=== PATIENT | female | born 1960 | race Caucasian/White ===

== ENCOUNTER 2016-10-17 03:35 | Emergency (ER) | payer MEDICAID, OTHER ==
[~2016-10-17] VITALS: Ht 162.6 cm; Wt 100.0 kg
[2016-10-17] MEDS ORDERED: ACETAMINOPHEN WITH CODEINE 300/30MG TABLET PO ONE (06:30)
[2016-10-17] MEDS ORDERED: TETANUS, DIPHTHERIA, PERTUSSIS VAC/PF 0.5ML (>7YR OLD) IM ONE (06:30)
[2016-10-17 07:34] VITALS: BP 168/102
== END 2016-10-17 07:38 | disposition home or self-care (01) ==
LOC: ER 03:35
DX: S91.135A Puncture wound without foreign body of left lesser toe(s) without damage to nail, initial encounter (principal); I10 Essential (primary) hypertension; F17.200 Nicotine dependence, unspecified, uncomplicated; W53.11XA Bitten by rat, initial encounter; Y93.89 Activity, other specified; Y92.89 Other specified places as the place of occurrence of the external cause; Y99.8 Other external cause status
CPT/HCPCS: 73630; 90471; 90715; 99284; Z7610

== ENCOUNTER 2018-10-27 18:32 | Emergency (ER) | payer MEDICAID ==
[~2018-10-27] VITALS: Ht 167.6 cm; Wt 91.0 kg
[2018-10-27] MEDS ORDERED: HYDROCODONE/ACETAMINOPHEN 5/325MG TABLET PO ONE (23:45)
[2018-10-28] MEDS ORDERED: CLONIDINE 0.2MG TABLET PO ONE (01:45)
[2018-10-28 01:51] VITALS: BP 196/106
== END 2018-10-28 02:10 | disposition home or self-care (01) ==
LOC: ER 18:32
DX: L03.311 Cellulitis of abdominal wall (principal); I10 Essential (primary) hypertension
CPT/HCPCS: 99283

== ENCOUNTER 2020-08-16 17:41 | Emergency (ER) | payer MEDICAID ==
[~2020-08-16] VITALS: Ht 162.6 cm; Wt 121.0 kg
[2020-08-17 00:49] LABS: BASOPHILS % 0.7 % (0.0-2.0); HEMATOCRIT. 40.7 % (36.0-48.0); HEMOGLOBIN. 13.5 g/dL (12.0-16.0); LYMPHOCYTES % 38.1 % (20.0-50.0); MEAN CORPUSCULAR HEMOGLOBIN 31.9 pg (28.0-32.0); MEAN CORPUSCULAR VOLUME 96.2 fL (81.0-99.0); MEAN PLATELET VOLUME 8.7 fl (7.4-10.4); MONOCYTES % 6.2 % (2.0-8.0); PLATELET 216 x1000/uL (130-400); RED BLOOD CELL COUNT 4.24 mill/uL (4.2-5.4); RED CELL DISTRIBUTION WIDTH 14.7 % (11.6-14.6)
[2020-08-17 02:00] VITALS: BP 157/89
== END 2020-08-17 02:30 | disposition home or self-care (01) ==
LOC: ER 17:41
DX: M25.572 Pain in left ankle and joints of left foot (principal); I10 Essential (primary) hypertension
CPT/HCPCS: 36415; 73610; 80048; 85025; 93922; 93971; 99285

== ENCOUNTER 2022-02-20 13:49 | Emergency (ER) | payer MEDICAID, OTHER ==
[~2022-02-20] VITALS: Ht 167.6 cm; Wt 90.0 kg
[2022-02-20 14:18] VITALS: BP 156/89
[2022-02-20] MEDS ORDERED: AMOX-494 MT (17:55)
[2022-02-20] MEDS ORDERED: AMLO5TAB4 MT (17:55)
[2022-02-20] MEDS ORDERED: CARB-274 EACH EAR (17:55)
== END 2022-02-20 18:29 | disposition home or self-care (01) ==
LOC: ER 13:49
DX: H66.93 Otitis media, unspecified, bilateral (principal); I16.0 Hypertensive urgency; I10 Essential (primary) hypertension; Z79.899 Other long term (current) drug therapy
CPT/HCPCS: 99283

== ENCOUNTER 2022-05-13 13:10 | Emergency (ER) | payer MEDICAID, OTHER ==
[~2022-05-13] VITALS: Ht 162.6 cm; Wt 84.0 kg
[~2022-05-13 13:10] MED LIST: AMLO5TAB4 MT; AMOX-494 MT; CARB-274 EACH EAR
[2022-05-13] MEDS ORDERED: IPRATROPIUM BROMIDE (0.02%) 0.5MG/2.5ML NEB HHN STA (13:47)
[2022-05-13] MEDS ORDERED: ALBUTEROL (0.083%) 2.5MG/3ML NEB HHN STA (13:47)
[2022-05-13] MEDS ORDERED: NITROGLYCERIN 0.4MG TABLET SL SL PRN (14:00)
[2022-05-13] MEDS ORDERED: ASPIRIN 81MG TABLET PO ONE (14:00)
[2022-05-13 14:58] VITALS: BP 195/132
== END 2022-05-13 15:06 | disposition left against medical advice (07) ==
LOC: ER 13:10 → ENRESERV 20:46 → CANBEDREQ 05-15 11:05
DX: R06.02 Shortness of breath (principal); I10 Essential (primary) hypertension; J40 Bronchitis, not specified as acute or chronic; M19.90 Unspecified osteoarthritis, unspecified site; Z98.890 Other specified postprocedural states
CPT/HCPCS: 71045; 93005; 94640; 99285; Z7610

== ENCOUNTER 2022-05-13 15:39 | Inpatient (IN) | payer MEDICAID ==
[~2022-05-13] VITALS: Ht 162.6 cm; Wt 108.4 kg
[2022-05-13 18:37] LABS: BASOPHILS % 0.6 % (0.0-2.0); EOSINOPHILS % 0.5 % (0.0-5.0); HEMATOCRIT. 38.1 % (36.0-48.0); HEMOGLOBIN. 12.4 g/dL (12.0-16.0); LYMPHOCYTES % 38.4 % (20.0-50.0); MEAN CORPUSCULAR HEMOGLOBIN 31.3 pg (28.0-32.0); MEAN CORPUSCULAR VOLUME 96.1 fL (81.0-99.0); MEAN PLATELET VOLUME 8.6 fl (7.4-10.4); MONOCYTES % 7.7 % (2.0-8.0); NEUTROPHILS % 52.8 % (40.0-76.0); PLATELET 217 x1000/uL (130-400); RED BLOOD CELL COUNT 3.96 mill/uL (4.2-5.4); RED CELL DISTRIBUTION WIDTH 15.9 % (11.6-14.6)
[2022-05-13 18:53] LABS: CHLORIDE 112 mEq/L (98-107)
[2022-05-13] MEDS ORDERED: IPRATROPIUM BROMIDE (0.02%) 0.5MG/2.5ML NEB HHN NR (18:55)
[2022-05-13] MEDS ORDERED: METHYLPREDNISOLONE SOD SUCC 125 MG/2 ML VIAL IV STA (19:00)
[2022-05-13] MEDS: ALBUTEROL (0.083%) 2.5MG/3ML NEB HHN SCH ×3 (19:40→20:30)
[2022-05-13] MEDS ORDERED: ASPIRIN 81MG TABLET PO SCH (20:00)
[2022-05-13] MEDS ORDERED: ENOXAPARIN 100MG/ML SYR SUBCUT NR (20:15)
[2022-05-13] MEDS ORDERED: LORAZEPAM 2MG/ML CPJ IV SCH (20:15)
[2022-05-13] MEDS ORDERED: IOHEXOL-350 100 ML BOTTLE ONE (20:28)
[2022-05-13 23:24] VITALS: BP 162/88
[2022-05-14] VITALS: BP 156/84
[2022-05-14] MEDS ORDERED: ACETAMINOPHEN 325MG TABLET PO PRN (01:00)
[2022-05-14] MEDS ORDERED: NITROGLYCERIN 0.4MG TABLET SL SL PRN (01:00)
[2022-05-14] MEDS ORDERED: ONDANSETRON HCL 4MG/2ML INJ IV PRN (01:00)
[2022-05-14] MEDS: FUROSEMIDE 40MG/4ML VIAL IVP SCH ×2 (02:18→09:02)
[2022-05-14 04:00] VITALS: BP 153/98
[2022-05-14 06:48] LABS: BASOPHILS % 0.1 % (0.0-2.0); HEMATOCRIT. 40.2 % (36.0-48.0); HEMOGLOBIN. 13.2 g/dL (12.0-16.0); LYMPHOCYTES % 8.9 % (20.0-50.0); MEAN CORPUSCULAR HEMOGLOBIN 31.9 pg (28.0-32.0); MEAN PLATELET VOLUME 8.5 fl (7.4-10.4); PLATELET 226 x1000/uL (130-400); RED BLOOD CELL COUNT 4.14 mill/uL (4.2-5.4); RED CELL DISTRIBUTION WIDTH 15.7 % (11.6-14.6)
[2022-05-14] MEDS: PANTOPRAZOLE 40MG DR TABLET PO SCH (06:51)
[2022-05-14 07:08] LABS: CHLORIDE 107 mEq/L (98-107)
[2022-05-14 07:26] LABS: HDL CHOLESTEROL 39 mg/dL (40-59); LDL CHOLESTEROL 119 mg/dL (5-100); T4 FREE 0.97 ng/dL (0.76-1.46)
[2022-05-14 08:00] VITALS: BP 170/96
[2022-05-14] MEDS ORDERED: LOSARTAN POTASSIUM 25 MG TABLET PO SCH ×2 (09:00→11:00)
[2022-05-14] MEDS ORDERED: ENOXAPARIN 40MG/0.4ML SYR SUBCUT SCH (09:00)
[2022-05-14] MEDS: POTASSIUM CHLORIDE 20MEQ TABLET SR PO SCH (09:03)
[2022-05-14] MEDS: ASPIRIN 81MG TABLET PO SCH (09:03)
[2022-05-14] MEDS: CARVEDILOL 6.25 MG TABLET PO SCH ×2 (09:03→21:29)
[2022-05-14] MEDS: ENOXAPARIN 30MG/0.3ML SYR SUBCUT SCH ×2 (09:04→21:29)
[2022-05-14] MEDS: METHYLPREDNISOLONE SOD SUCC 40 MG/ML VIAL IV SCH ×2 (10:25→21:29)
[2022-05-14 10:31] LABS: CLARITY URINE CLEAR (CLEAR); COLOR URINE YELLOW (YELLOW); KETONES URINE NEGATIVE (NEGATIVE); LEUKOCYTE ESTERASE URINE NEGATIVE (NEGATIVE); NITRITE URINE NEGATIVE (NEGATIVE); OCCULT BLOOD URINE NEGATIVE (NEGATIVE); PH URINE 5.5 (4.5-8.0); PROTEIN URINE NEGATIVE (NEGATIVE); SPECIFIC GRAVITY URINE 1.027 (1.005-1.030)
[2022-05-14 10:49] LABS: *AMPHETAMINES SCREEN URINE NEGATIVE (NEGATIVE); *BARBITURATES SCREEN URINE NEGATIVE (NEGATIVE); *BENZODIAZEPINES SCREEN URINE NEGATIVE (NEGATIVE); *COCAINE SCREEN URINE PRESUMTIVE POSITIVE (NEGATIVE); CANNABINOID URINE SCREEN NEGATIVE (NEGATIVE); METHADONE URINE SCREEN NEGATIVE (NEGATIVE); OPIATES URINE SCREEN NEGATIVE (NEGATIVE); PHENCYCLIDINE URINE SCREEN PRESUMTIVE POSITIVE (NEGATIVE)
[2022-05-14] MEDS ORDERED: HYDRALAZINE HCL 25MG TABLET PO PRN (11:00)
[2022-05-14 12:00] VITALS: BP 149/105
[2022-05-14 16:00] VITALS: BP 151/102
[2022-05-14] MEDS: LOSARTAN POTASSIUM 25 MG TABLET PO SCH (17:06)
[2022-05-14 20:00] VITALS: BP 157/94
[2022-05-15] VITALS: BP 145/97
[2022-05-15 04:00] VITALS: BP 125/83
[2022-05-15] MEDS: PANTOPRAZOLE 40MG DR TABLET PO SCH (07:17)
[2022-05-15 08:00] VITALS: BP 135/91
[2022-05-15] MEDS ORDERED: ALBU18HF2 IH (08:58)
[2022-05-15] MEDS ORDERED: LOSA25TA3 PO (08:58)
[2022-05-15] MEDS ORDERED: FURO-151 MT (08:58)
[2022-05-15] MEDS ORDERED: AMLO10TA80 MT (08:58)
[2022-05-15] MEDS ORDERED: FLUT1DIS3 INH (09:03)
[2022-05-15] MEDS ORDERED: FLUT9.9S16 BOTHNSTRLS (09:03)
[2022-05-15] MEDS ORDERED: LACTULOSE 20G/30ML UDC PO NR (09:15)
[2022-05-15] MEDS: ASPIRIN 81MG TABLET PO SCH (09:34)
[2022-05-15] MEDS: LOSARTAN POTASSIUM 25 MG TABLET PO SCH ×2 (09:34→18:10)
[2022-05-15] MEDS: POTASSIUM CHLORIDE 20MEQ TABLET SR PO SCH (09:34)
[2022-05-15] MEDS: METHYLPREDNISOLONE SOD SUCC 40 MG/ML VIAL IV SCH ×2 (09:35→21:57)
[2022-05-15] MEDS: FUROSEMIDE 40MG/4ML VIAL IVP SCH (09:35)
[2022-05-15] MEDS: ENOXAPARIN 30MG/0.3ML SYR SUBCUT SCH ×3 (09:36→21:59)
[2022-05-15] MEDS: CARVEDILOL 6.25 MG TABLET PO SCH ×2 (09:37→21:59)
[2022-05-15] MEDS: FLUTICASONE PROPIONATE 50MCG/SPRAY BOTTLE BOTHNSTRLS SCH ×2 (11:00→22:00)
[2022-05-15 12:00] VITALS: BP 126/81
[2022-05-15 16:00] VITALS: BP 146/76
[2022-05-15 20:00] VITALS: BP 132/70
[2022-05-16] VITALS: BP 137/86
[2022-05-16 04:00] VITALS: BP 131/85
[2022-05-16 08:00] VITALS: BP 132/82
[2022-05-16] MEDS: ENOXAPARIN 30MG/0.3ML SYR SUBCUT SCH ×2 (08:13→21:47)
[2022-05-16] MEDS: FAMOTIDINE 20MG TABLET PO SCH ×2 (08:13→21:45)
[2022-05-16] MEDS: LOSARTAN POTASSIUM 25 MG TABLET PO SCH ×2 (08:13→17:44)
[2022-05-16] MEDS: POTASSIUM CHLORIDE 20MEQ TABLET SR PO SCH (08:13)
[2022-05-16] MEDS: METHYLPREDNISOLONE SOD SUCC 40 MG/ML VIAL IV SCH ×2 (08:14→21:45)
[2022-05-16] MEDS: ASPIRIN 81MG TABLET PO SCH (08:14)
[2022-05-16] MEDS: FUROSEMIDE 40MG/4ML VIAL IVP SCH (08:14)
[2022-05-16] MEDS: CARVEDILOL 6.25 MG TABLET PO SCH ×2 (08:14→21:49)
[2022-05-16] MEDS: FLUTICASONE PROPIONATE 50MCG/SPRAY BOTTLE BOTHNSTRLS SCH ×2 (09:44→21:51)
[2022-05-16 12:00] VITALS: BP 130/87
[2022-05-16 16:00] VITALS: BP 127/56
[2022-05-16 20:00] VITALS: BP 138/100
[2022-05-17] VITALS (7 sets, daily range): BP systolic 119–140; BP diastolic 73–102
[2022-05-17] MEDS: FUROSEMIDE 40MG/4ML VIAL IVP SCH (09:00)
[2022-05-17] MEDS: CARVEDILOL 6.25 MG TABLET PO SCH ×2 (09:00→20:56)
[2022-05-17] MEDS: LOSARTAN POTASSIUM 25 MG TABLET PO SCH ×2 (09:00→17:15)
[2022-05-17] MEDS: METHYLPREDNISOLONE SOD SUCC 40 MG/ML VIAL IV SCH (09:00)
[2022-05-17] MEDS: ENOXAPARIN 30MG/0.3ML SYR SUBCUT SCH ×2 (09:00→21:50)
[2022-05-17] MEDS: FAMOTIDINE 20MG TABLET PO SCH ×2 (09:00→20:56)
[2022-05-17] MEDS: FLUTICASONE PROPIONATE 50MCG/SPRAY BOTTLE BOTHNSTRLS SCH ×2 (09:57→20:56)
[2022-05-17] MEDS: POTASSIUM CHLORIDE 20MEQ TABLET SR PO SCH (09:58)
[2022-05-17] MEDS: ASPIRIN 81MG TABLET PO SCH (09:59)
[2022-05-18 08:00] VITALS: BP 133/82
[2022-05-18] MEDS: FAMOTIDINE 20MG TABLET PO SCH ×2 (08:48→21:00)
[2022-05-18] MEDS: CARVEDILOL 6.25 MG TABLET PO SCH ×2 (08:48→21:53)
[2022-05-18] MEDS: POTASSIUM CHLORIDE 20MEQ TABLET SR PO SCH (08:49)
[2022-05-18] MEDS: LOSARTAN POTASSIUM 25 MG TABLET PO SCH ×2 (08:49→17:37)
[2022-05-18] MEDS: PREDNISONE 10MG TABLET PO SCH (08:49)
[2022-05-18] MEDS: FLUTICASONE PROPIONATE 50MCG/SPRAY BOTTLE BOTHNSTRLS SCH (08:49)
[2022-05-18] MEDS: ASPIRIN 81MG TABLET PO SCH (08:49)
[2022-05-18] MEDS: ENOXAPARIN 30MG/0.3ML SYR SUBCUT SCH ×2 (08:54→21:00)
[2022-05-18 12:00] VITALS: BP 121/82
[2022-05-18 12:46] LABS: BG BASE EXCESS 6.9 mmol/L (-2.0-2.0); BG CARBOXYHEMOGLOBIN 0.8 % (0.5-1.5); BG DEOXYHEMOGLOBIN 2.3 % (0.0-5.0); BG FRACTION INSPIRED OXYGEN 21; BG HCO3 ACT 31.6 mmol/L (22.0-26.0); BG METHEMOGLOBIN 0.1 % (0.0-1.5); BG OXYGEN SATURATION 97.7 % (92.0-98.5); BG OXYHEMOGLOBIN 96.8 % (94.0-97.0); BG PCO2 45.1 mmHg (35.0-45.0); BG PH 7.464 (7.350-7.450); BG PO2 108.1 mmHg (75.0-100.0); BG SAMPLE SITE RIGHT RADIAL; BG TOTAL HEMOGLOBIN 14.3 g/dL (12.0-18.0); BG VENT MODE ROOM AIR
[2022-05-18 16:00] VITALS: BP 139/88
[2022-05-18 20:00] VITALS: BP 148/98
[2022-05-19] VITALS: BP 135/92
[2022-05-19] MEDS: POTASSIUM CHLORIDE 20MEQ TABLET SR PO SCH (09:00)
[2022-05-19] MEDS: FAMOTIDINE 20MG TABLET PO SCH (09:00)
[2022-05-19] MEDS: LOSARTAN POTASSIUM 25 MG TABLET PO SCH (09:00)
[2022-05-19] MEDS: ENOXAPARIN 30MG/0.3ML SYR SUBCUT SCH (09:00)
[2022-05-19] MEDS: PREDNISONE 10MG TABLET PO SCH (11:10)
[2022-05-19] MEDS: ASPIRIN 81MG TABLET PO SCH (11:11)
[2022-05-19] MEDS: CARVEDILOL 6.25 MG TABLET PO SCH (11:12)
[2022-05-19 11:55] VITALS: BP 130/83
[2022-05-19] MEDS: BUDESONIDE 0.5MG/2ML NEB HHN SCH ×2 (12:39→20:00)
[2022-05-19 16:02] VITALS: BP 134/91
[2022-05-19 16:25] VITALS: BP 134/91
[2022-05-19] MEDS ORDERED: ATORVASTATIN CALCIUM 20MG TABLET PO SCH (21:00)
== END 2022-05-19 19:10 | disposition home or self-care (01) | DRG 194 ==
LOC: ER 15:39 → CVICU 20:02 → EDBEDREQ 20:20 → EDBEDREQTM 20:20 → 3WST 23:16 → 6EST 05-18 00:58
PROVIDERS: ADMIT Internal Medicine; ATTEND Internal Medicine
DX: I11.0 Hypertensive heart disease with heart failure (principal); J96.01 Acute respiratory failure with hypoxia; E44.1 Mild protein-calorie malnutrition; J44.1 Chronic obstructive pulmonary disease with (acute) exacerbation; I50.33 Acute on chronic diastolic (congestive) heart failure; E66.9 Obesity, unspecified; Z20.822 Contact with and (suspected) exposure to COVID-19; M19.90 Unspecified osteoarthritis, unspecified site; F17.210 Nicotine dependence, cigarettes, uncomplicated; F14.10 Cocaine abuse, uncomplicated; R74.01 Elevation of levels of liver transaminase levels; Z79.899 Other long term (current) drug therapy; Z59.00 Homelessness unspecified; Z79.51 Long term (current) use of inhaled steroids; Z68.41 Body mass index [BMI] 40.0-44.9, adult; Z71.6 Tobacco abuse counseling
CPT/HCPCS: 36415; 36600; 71275; 80048; 80053; 80061; 80305; 81003; 82375; 82805; 83735; 83880; 84145; 84439; 84443; 84484; 85025; 85379; 87426; 93306; 93971; 94644; 97162; 99285; J1650; J1940; J2920; J2930; J7512; J7626; Q9967

== ENCOUNTER 2022-08-28 17:48 | Emergency (ER) | payer MEDICAID, OTHER ==
[~2022-08-28] VITALS: Ht 162.6 cm; Wt 85.7 kg
[~2022-08-28 17:48] MED LIST changes: +ALBU18HF2 IH; +AMLO10TA80 MT; -AMOX-494 MT; +FLUT1DIS3 INH; +FLUT9.9S16 BOTHNSTRLS; +FURO-151 MT; +LOSA25TA3 PO
[2022-08-28 18:02] VITALS: O2SAT 91
[2022-08-28 18:35] LABS: BASOPHILS % 0.7 % (0.0-2.0); EOSINOPHILS % 1.2 % (0.0-5.0); HEMATOCRIT. 37.9 % (36.0-48.0); HEMOGLOBIN. 12.2 g/dL (12.0-16.0); LYMPHOCYTES % 25.3 % (20.0-50.0); MEAN CORPUSCULAR HEMOGLOBIN 31.7 pg (28.0-32.0); MEAN CORPUSCULAR VOLUME 98.3 fL (81.0-99.0); MONOCYTES % 6.7 % (2.0-8.0); NEUTROPHILS % 66.1 % (40.0-76.0); PLATELET 212 x1000/uL (130-400); RED BLOOD CELL COUNT 3.86 mill/uL (4.2-5.4); RED CELL DISTRIBUTION WIDTH 16.5 % (11.6-14.6)
[2022-08-28 18:41] LABS: CHLORIDE 112 mEq/L (98-107)
[2022-08-28 19:10] LABS: INR 1.1; PROTHROMBIN TIME 11.4 sec (9.6-11.0)
[2022-08-28] MEDS ORDERED: ONDANSETRON HCL 4MG/2ML INJ IV STA (22:19)
[2022-08-28] MEDS ORDERED: MORPHINE SULFATE 4 MG/ML CPJ (NOT FOR IM USE) IV STA (22:19)
[2022-08-28] MEDS ORDERED: VANCOMYCIN 1G PREMIX 200 ML IV ONE (22:30)
[2022-08-28] MEDS ORDERED: PIPERACILLIN/TAZ 3.375G PREMIX 50 ML IV ONE (22:30)
[2022-08-28] MEDS ORDERED: METOCLOPRAMIDE HCL 10MG/2ML VIAL IV ONE (23:30)
[2022-08-29 02:00] VITALS: TEMP 98.5
[2022-08-29 04:00] VITALS: BP 133/95; PULSE 79; RESP 17
== END 2022-08-29 04:12 | disposition left against medical advice (07) ==
LOC: ER 17:48
DX: L03.116 Cellulitis of left lower limb (principal); I11.0 Hypertensive heart disease with heart failure; I50.9 Heart failure, unspecified; Z79.899 Other long term (current) drug therapy
CPT/HCPCS: 80053; 83880; 83605; 85025; 85610; 87040; 84484; 36415; 71045; 73590; 93970; 93005; 96365; 96366; 96375; 99285; J2765; J2405; J2543; J3370; J2270; Z7610 ×3

== ENCOUNTER 2022-10-28 11:18 | Emergency (ER) | payer OTHER ==
[~2022-10-28] VITALS: Ht 165.1 cm; Wt 90.0 kg
[~2022-10-28 11:18] MED LIST changes: +ATOR20TA PO
[2022-10-28 12:04] VITALS: BP 177/103; PULSE 92; RESP 20; O2SAT 98
[2022-10-28 14:00] VITALS: TEMP 98.7
[2022-10-28] MEDS ORDERED: ACETAMINOPHEN 325MG TABLET PO ONE (14:00)
[2022-10-28] MEDS ORDERED: INHA1SPA3 INH (15:32)
[2022-10-28] MEDS ORDERED: ACET-2708 MT ×2 (16:29→16:30)
== END 2022-10-28 16:29 | disposition home or self-care (01) ==
LOC: ER 12:53
DX: M54.9 Dorsalgia, unspecified (principal); I10 Essential (primary) hypertension; Z79.899 Other long term (current) drug therapy
CPT/HCPCS: 99281; 99283

== ENCOUNTER 2023-02-25 08:32 | Emergency (ER) | payer MEDICAID, OTHER ==
[~2023-02-25] VITALS: Ht 162.6 cm; Wt 128.0 kg
[~2023-02-25 08:32] MED LIST changes: +ACET-2708 MT; +INHA1SPA3 INH; +LOSA-412 PO; -LOSA25TA3 PO
[2023-02-25 09:06] VITALS: BP 128/80; PULSE 94; RESP 16; TEMP 97.9; O2SAT 99
[2023-02-25] MEDS ORDERED: ACET-283 PO (10:01)
[2023-02-25] MEDS ORDERED: SULF1TAB47 MT (10:01)
[2023-02-25] MEDS ORDERED: CEPH500C2 MT (10:01)
[2023-02-25] MEDS ORDERED: HYDR-4001 MT (10:01)
== END 2023-02-25 10:46 | disposition home or self-care (01) ==
LOC: ER 08:32
DX: L03.115 Cellulitis of right lower limb (principal); R60.0 Localized edema; I11.0 Hypertensive heart disease with heart failure; I50.9 Heart failure, unspecified; Z79.899 Other long term (current) drug therapy
CPT/HCPCS: 99283

== ENCOUNTER 2023-09-02 15:01 | Emergency (ER) | payer OTHER, MEDICAID ==
[~2023-09-02] VITALS: Ht 167.6 cm; Wt 100.0 kg
[~2023-09-02 15:01] MED LIST changes: +ACET-283 PO; +CEPH500C2 MT; +HYDR-4001 MT; +SULF1TAB47 MT
[2023-09-02 15:06] VITALS: O2SAT 95
[2023-09-02 15:47] LABS: CHLORIDE 110 mEq/L (98-107); POTASSIUM 3.8 mEq/L (3.5-5.1); SODIUM 144 mEq/L (136-145)
[2023-09-02 15:48] LABS: CARBON DIOXIDE 27 mEq/L (21-32)
[2023-09-02 15:49] LABS: CALCIUM 8.7 mg/dL (8.7-10.4)
[2023-09-02 15:50] LABS: BASOPHILS % 0.4 % (0.0-2.0); DIFFERENTIAL COMMENT 0; EOSINOPHILS % 0.4 % (0.0-5.0); HEMATOCRIT. 36.8 % (36.0-48.0); HEMOGLOBIN. 11.8 g/dL (12.0-16.0); MEAN CORPUSCULAR HEMOGLOBIN 32.8 pg (28.0-32.0); MEAN CORPUSCULAR HGB CONC 32.2 g/dL (31.0-37.0); MEAN CORPUSCULAR VOLUME 101.9 fL (81.0-99.0); MEAN PLATELET VOLUME 8.2 fl (7.4-10.4); MONOCYTES % 8.1 % (2.0-8.0); NEUTROPHILS % 65.1 % (40.0-76.0); PLATELET 185 x1000/uL (130-400); RED BLOOD CELL COUNT 3.61 mill/uL (4.2-5.4); RED CELL DISTRIBUTION WIDTH 16.5 % (11.6-14.6); WHITE BLOOD COUNT 4.8 x1000/uL (4.5-11.0)
[2023-09-02 15:53] LABS: GLUCOSE 139 mg/dL (70-105); UREA NITROGEN BLOOD 15 mg/dL (9-23)
[2023-09-02 15:55] LABS: ALANINE AMINOTRANSFERASE 22 IU/L (10-49); ALBUMIN 3.5 g/dL (3.2-4.8); ASPARTATE AMINOTRANSFERASE 32 IU/L (<34)
[2023-09-02 15:56] LABS: BILIRUBIN DIRECT 0.4 mg/dL (<=3.0); BILIRUBIN TOTAL 0.8 mg/dL (0.1-1.0); PROTEIN TOTAL 6.1 g/dL (6.0-8.3)
[2023-09-02] MEDS ORDERED: IBUP-2029 MT (16:25)
[2023-09-02] MEDS ORDERED: FURO-151 MT (16:25)
[2023-09-02] MEDS: IBUPROFEN 600MG TABLET PO ONE (16:49)
[2023-09-02 17:08] VITALS: BP 147/89; PULSE 91; RESP 18; TEMP 97.7
== END 2023-09-02 17:18 | disposition home or self-care (01) ==
LOC: ER 15:01
DX: M79.89 Other specified soft tissue disorders (principal); I11.0 Hypertensive heart disease with heart failure; I50.9 Heart failure, unspecified; Z98.890 Other specified postprocedural states; Z79.899 Other long term (current) drug therapy
CPT/HCPCS: 36415; 71045; 80048; 80076; 83880; 85025; 93005; 99285

== ENCOUNTER 2024-01-01 20:12 | Inpatient (IN) | payer MEDICAID, OTHER ==
[~2024-01-01] VITALS: Ht 162.6 cm; Wt 115.2 kg
[~2024-01-01 20:12] MED LIST changes: -AMLO5TAB4 MT; +AMLO5TAB5 MT; +IBUP-2029 MT
[2024-01-01 21:26] LABS: CHLORIDE 109 mEq/L (98-107); POTASSIUM 3.8 mEq/L (3.5-5.1); SODIUM 143 mEq/L (136-145)
[2024-01-01 21:27] LABS: CARBON DIOXIDE 29 mEq/L (21-32)
[2024-01-01 21:32] LABS: BASOPHILS % 0.6 % (0.0-2.0); DIFFERENTIAL COMMENT 0; GLUCOSE 104 mg/dL (70-105); HEMATOCRIT. 42.4 % (36.0-48.0); HEMOGLOBIN. 12.9 g/dL (12.0-16.0); LYMPHOCYTES % 21.3 % (20.0-50.0); MEAN CORPUSCULAR HGB CONC 30.4 g/dL (31.0-37.0); MEAN CORPUSCULAR VOLUME 101.8 fL (81.0-99.0); MEAN PLATELET VOLUME 8.5 fl (7.4-10.4); MONOCYTES % 8.9 % (2.0-8.0); NEUTROPHILS % 68.2 % (40.0-76.0); PLATELET 163 x1000/uL (130-400); RED BLOOD CELL COUNT 4.16 mill/uL (4.2-5.4); RED CELL DISTRIBUTION WIDTH 17.3 % (11.6-14.6); UREA NITROGEN BLOOD 15 mg/dL (9-23); WHITE BLOOD COUNT 5.5 x1000/uL (4.5-11.0)
[2024-01-01 22:11] LABS: TROPONIN I HIGH SENSITIVITY 31 ng/L (3.0-34)
[2024-01-01 22:12] LABS: ALANINE AMINOTRANSFERASE 17 IU/L (10-49); ASPARTATE AMINOTRANSFERASE 31 IU/L (<34)
[2024-01-01 22:13] LABS: ALBUMIN 3.3 g/dL (3.2-4.8); BILIRUBIN DIRECT 0.6 mg/dL (<=3.0); PROTEIN TOTAL 6.5 g/dL (6.0-8.3)
[2024-01-01] MEDS: ACETAMINOPHEN 325MG TABLET PO STA (23:26)
[2024-01-01] MEDS: FUROSEMIDE 40MG/4ML VIAL IVP ONE (23:26)
[2024-01-01] MEDS: ASPIRIN 81MG TABLET PO ONE (23:27)
[2024-01-01] MEDS: MORPHINE SULFATE 4 MG/ML INJ (FOR IV/IM USE) IV STA (23:27)
[2024-01-01] MEDS: ONDANSETRON HCL 4MG/2ML INJ IV STA (23:27)
[2024-01-02] VITALS (7 sets, daily range): BP systolic 105–163; BP diastolic 42–101; PULSE 62–102; RESP 16–20; TEMP 36.114–37.00296; O2SAT 93–99
[2024-01-02] MEDS: VANCOMYCIN 1G PREMIX 200 ML IV SCH
[2024-01-02 06:34] LABS: CLARITY URINE CLOUDY (CLEAR); COLOR URINE YELLOW (YELLOW); GLUCOSE URINE NEGATIVE (NEGATIVE); KETONES URINE NEGATIVE (NEGATIVE); LEUKOCYTE ESTERASE URINE 3+ (NEGATIVE); NITRITE URINE POSITIVE (NEGATIVE); OCCULT BLOOD URINE 1+ (NEGATIVE); PH URINE 5.5 (4.5-8.0); PROTEIN URINE 1+ (NEGATIVE); SPECIFIC GRAVITY URINE 1.012 (1.005-1.030)
[2024-01-02 08:06] LABS: BACTERIA URINE 3+; RBC URINE 0-2 /hpf (0-2); SQUAMOUS EPITHELIAL CELL URINE 1+ /lpf (RARE/1+); YEAST URINE NONE SEEN
[2024-01-02] MEDS: PIPERACILLIN/TAZO 3.375G/50ML 50 ML IV SCH ×2 (09:00→17:25)
[2024-01-02] MEDS ORDERED: IPRATROPIUM/ALBUTEROL 0.5-3(2.5)MG/3ML NEB HHN PRN (12:45)
[2024-01-02] MEDS ORDERED: ACETAMINOPHEN 325MG TABLET PO PRN (12:45)
[2024-01-02] MEDS ORDERED: ONDANSETRON HCL 4MG/2ML INJ IV PRN (12:45)
[2024-01-02] MEDS ORDERED: DOCUSATE SODIUM 100MG CAPSULE PO PRN (12:45)
[2024-01-02] MEDS ORDERED: CLONIDINE 0.1MG TABLET PO PRN (12:45)
[2024-01-02] MEDS: DILTIAZEM HCL 30MG TABLET PO SCH (14:00)
[2024-01-02] MEDS: ACETAMINOPHEN 325MG TABLET PO PRN (14:24)
[2024-01-02] MEDS: FUROSEMIDE 40MG/4ML VIAL IVP SCH (14:24)
[2024-01-02] MEDS: LOSARTAN 25 MG TABLET PO SCH (14:24)
[2024-01-02 15:57] LABS: BG BASE EXCESS -1.6 mmol/L (-2.0-3.0); BG CARBOXYHEMOGLOBIN 1.8 % (0.5-1.5); BG DEOXYHEMOGLOBIN 2.9 % (0.0-5.0); BG HCO3 ACT 26.6 mmol/L (21.0-28.0); BG METHEMOGLOBIN 0.3 % (0.5-1.5); BG PCO2 60.2 mmHg (32.0-45.0); BG PH 7.263 (7.350-7.450); BG PO2 102.9 mmHg (83.0-108.0); BG SAMPLE SITE RIGHT RADIAL; BG TOTAL HEMOGLOBIN 14.1 g/dL (12.0-16.0); BG VENT MODE NASAL CANNULA
[2024-01-02] MEDS: ENOXAPARIN 40MG/0.4ML SYR SUBCUT SCH (17:55)
[2024-01-02] MEDS: POTASSIUM CHLORIDE 20MEQ TABLET SR PO NR (17:55)
[2024-01-02] MEDS ORDERED: ENOXAPARIN 30MG/0.3ML SYR SUBCUT SCH (21:00)
[2024-01-02] MEDS: IPRATROPIUM/ALBUTEROL 0.5-3(2.5)MG/3ML NEB HHN SCH (21:32)
[2024-01-02 22:19] LABS: CREATINE KINASE MB FRACTION 9.8 ng/mL (0.5-3.6)
[2024-01-02 22:20] LABS: LACTIC ACID 2.3 mmol/L (0.4-2.0)
[2024-01-02 22:24] LABS: T4 FREE 1.09 ng/dL (0.89-1.76); THYROID STIMULATING HORMONE 0.92 uIU/mL (0.55-4.78)
[2024-01-03] VITALS (8 sets, daily range): BP systolic 103–148; BP diastolic 60–99; PULSE 81–96; RESP 16–20; TEMP 36.114–37.2252; O2SAT 92–100
[2024-01-03] MEDS: ENOXAPARIN 40MG/0.4ML SYR SUBCUT NR (00:03)
[2024-01-03 02:28] LABS: INR 1.2; PROTHROMBIN TIME 12.9 sec (9.6-11.0)
[2024-01-03 06:40] LABS: BASOPHILS % 0.3 % (0.0-2.0); DIFFERENTIAL COMMENT 0; EOSINOPHILS % 0.2 % (0.0-5.0); HEMATOCRIT. 42.7 % (36.0-48.0); HEMOGLOBIN. 12.8 g/dL (12.0-16.0); LYMPHOCYTES % 16.4 % (20.0-50.0); MEAN CORPUSCULAR HEMOGLOBIN 31.2 pg (28.0-32.0); MEAN CORPUSCULAR HGB CONC 29.9 g/dL (31.0-37.0); MEAN CORPUSCULAR VOLUME 104.2 fL (81.0-99.0); MEAN PLATELET VOLUME 8.7 fl (7.4-10.4); MONOCYTES % 13.4 % (2.0-8.0); NEUTROPHILS % 69.7 % (40.0-76.0); PLATELET 168 x1000/uL (130-400); RED CELL DISTRIBUTION WIDTH 17.2 % (11.6-14.6); WHITE BLOOD COUNT 5.7 x1000/uL (4.5-11.0)
[2024-01-03] MEDS: FUROSEMIDE 100MG/10ML VIAL IVP SCH (06:42)
[2024-01-03 06:50] LABS: CHLORIDE 107 mEq/L (98-107); POTASSIUM 4.2 mEq/L (3.5-5.1)
[2024-01-03 06:51] LABS: CARBON DIOXIDE 28 mEq/L (21-32); SODIUM 139 mEq/L (136-145)
[2024-01-03 06:56] LABS: CREATINE KINASE MB FRACTION 9.6 ng/mL (0.5-3.6); CREATININE 1.3 mg/dL (0.6-1.0); GLUCOSE 110 mg/dL (70-105)
[2024-01-03 06:57] LABS: LDL CHOLESTEROL 73 mg/dL (5-100); TRIGLYCERIDE 70 mg/dL (0-150); UREA NITROGEN BLOOD 16 mg/dL (9-23)
[2024-01-03 06:58] LABS: ALANINE AMINOTRANSFERASE 17 IU/L (10-49); ALBUMIN 3.4 g/dL (3.2-4.8); ASPARTATE AMINOTRANSFERASE 35 IU/L (<34); BILIRUBIN DIRECT 0.6 mg/dL (<=3.0); CHOLESTEROL 109 mg/dL (<200); CREATINE KINASE 131 IU/L (34-145); HDL CHOLESTEROL 26 mg/dL (>65); PHOSPHORUS 4.7 mg/dL (2.5-4.9)
[2024-01-03 06:59] LABS: BILIRUBIN TOTAL 1.1 mg/dL (0.1-1.0); INR 1.2; PROTEIN TOTAL 6.8 g/dL (6.0-8.3)
[2024-01-03 07:38] LABS: TROPONIN I HIGH SENSITIVITY 1901 ng/L (3.0-34)
[2024-01-03] MEDS: PANTOPRAZOLE SODIUM 40 MG/VIAL IV SCH (08:45)
[2024-01-03] MEDS: ASPIRIN 81MG TABLET PO SCH (08:46)
[2024-01-03] MEDS: ENOXAPARIN 100MG/ML SYR SUBCUT SCH (08:50)
[2024-01-03] MEDS: MAGNESIUM 2 G PREMIX 50 ML IV SCH (10:15)
[2024-01-03] MEDS: NITROGLYCERIN OINT 1GM/INCH UDPKT TD SCH (14:26)
[2024-01-03 14:42] LABS: *AMPHETAMINES SCREEN URINE NEGATIVE (NEGATIVE); *BENZODIAZEPINES SCREEN URINE NEGATIVE (NEGATIVE)
[2024-01-03 14:43] LABS: *BARBITURATES SCREEN URINE NEGATIVE (NEGATIVE); *COCAINE SCREEN URINE NEGATIVE (NEGATIVE); METHADONE URINE SCREEN NEGATIVE (NEGATIVE)
[2024-01-03 14:44] LABS: CANNABINOID URINE SCREEN NEGATIVE (NEGATIVE); ECSTASY MDMA SCREEN URINE NEGATIVE (NEGATIVE); OPIATES URINE SCREEN PRESUMPTIVE POSITIVE (NEGATIVE); PHENCYCLIDINE URINE SCREEN PRESUMTIVE POSITIVE (NEGATIVE)
[2024-01-03] MEDS: LIDOCAINE HCL 4% (40MG/ML) SOLN 50ML TOP NR (16:00)
[2024-01-03] MEDS: CHLORHEXIDINE GLUCONATE 4% EXTERNAL USE TOP SCH (16:00)
[2024-01-03] MEDS ORDERED: FUROSEMIDE 40MG/4ML VIAL IVP SCH (17:15)
[2024-01-03] MEDS: FUROSEMIDE 40MG/4ML VIAL IVP SCH (17:48)
[2024-01-03 18:52] LABS: BG BASE EXCESS 2.6 mmol/L (-2.0-3.0); BG CARBOXYHEMOGLOBIN 1.1 % (0.5-1.5); BG DEOXYHEMOGLOBIN 5.2 % (0.0-5.0); BG FRACTION INSPIRED OXYGEN 24; BG HCO3 ACT 30.5 mmol/L (21.0-28.0); BG METHEMOGLOBIN 0.3 % (0.5-1.5); BG OXYGEN SATURATION 94.7 % (94.0-98.0); BG OXYHEMOGLOBIN 93.4 % (94.0-98.0); BG PCO2 62.2 mmHg (32.0-45.0); BG PH 7.309 (7.350-7.450); BG PO2 76.1 mmHg (83.0-108.0); BG SAMPLE SITE RIGHT RADIAL; BG TOTAL HEMOGLOBIN 14.1 g/dL (12.0-16.0); BG VENT MODE NASAL CANNULA
[2024-01-04] VITALS (8 sets, daily range): BP systolic 100–152; BP diastolic 60–92; PULSE 60–100; RESP 16–20; TEMP 36.114–37.16964; O2SAT 92–99
[2024-01-04 07:00] LABS: CHLORIDE 104 mEq/L (98-107); POTASSIUM 4.2 mEq/L (3.5-5.1); SODIUM 139 mEq/L (136-145)
[2024-01-04 07:01] LABS: CARBON DIOXIDE 33 mEq/L (21-32)
[2024-01-04 07:02] LABS: CALCIUM 8.7 mg/dL (8.7-10.4)
[2024-01-04 07:06] LABS: GLUCOSE 118 mg/dL (70-105)
[2024-01-04 07:07] LABS: UREA NITROGEN BLOOD 15 mg/dL (9-23)
[2024-01-04 07:09] LABS: PHOSPHORUS 2.9 mg/dL (2.5-4.9)
[2024-01-04 07:51] LABS: BASOPHILS % 0.3 % (0.0-2.0); DIFFERENTIAL COMMENT 0; EOSINOPHILS % 0.3 % (0.0-5.0); HEMATOCRIT. 37.8 % (36.0-48.0); HEMOGLOBIN. 12.2 g/dL (12.0-16.0); LYMPHOCYTES % 16.3 % (20.0-50.0); MEAN CORPUSCULAR HGB CONC 32.3 g/dL (31.0-37.0); MEAN PLATELET VOLUME 8.5 fl (7.4-10.4); MONOCYTES % 9.2 % (2.0-8.0); NEUTROPHILS % 73.9 % (40.0-76.0); PLATELET 173 x1000/uL (130-400); RED BLOOD CELL COUNT 3.71 mill/uL (4.2-5.4); RED CELL DISTRIBUTION WIDTH 16.5 % (11.6-14.6); WHITE BLOOD COUNT 5.4 x1000/uL (4.5-11.0)
[2024-01-04 15:29] LABS: TROPONIN I HIGH SENSITIVITY 897 ng/L (3.0-34)
[2024-01-04] MEDS: MAGNESIUM 2 G PREMIX 50 ML IV NR (16:55)
[2024-01-05] VITALS (9 sets, daily range): BP systolic 115–162; BP diastolic 67–86; PULSE 64–102; RESP 16–20; TEMP 36.3918–36.61404; O2SAT 95–100
[2024-01-05 10:00] LABS: BASOPHILS % 0.3 % (0.0-2.0); DIFFERENTIAL COMMENT 0; EOSINOPHILS % 0.5 % (0.0-5.0); HEMATOCRIT. 40.4 % (36.0-48.0); HEMOGLOBIN. 12.5 g/dL (12.0-16.0); LYMPHOCYTES % 15.8 % (20.0-50.0); MEAN CORPUSCULAR HGB CONC 30.9 g/dL (31.0-37.0); MEAN CORPUSCULAR VOLUME 100.3 fL (81.0-99.0); MEAN PLATELET VOLUME 9.1 fl (7.4-10.4); NEUTROPHILS % 73.4 % (40.0-76.0); PLATELET 202 x1000/uL (130-400); RED BLOOD CELL COUNT 4.03 mill/uL (4.2-5.4); RED CELL DISTRIBUTION WIDTH 16.1 % (11.6-14.6)
[2024-01-05 10:07] LABS: CARBON DIOXIDE 34 mEq/L (21-32); CHLORIDE 99 mEq/L (98-107); POTASSIUM 4.3 mEq/L (3.5-5.1); SODIUM 138 mEq/L (136-145)
[2024-01-05 10:08] LABS: CALCIUM 8.8 mg/dL (8.7-10.4)
[2024-01-05 10:12] LABS: CREATININE 0.8 mg/dL (0.6-1.0)
[2024-01-05 10:13] LABS: GLUCOSE 116 mg/dL (70-105); UREA NITROGEN BLOOD 12 mg/dL (9-23)
[2024-01-05 10:29] LABS: TROPONIN I HIGH SENSITIVITY 713 ng/L (3.0-34)
[2024-01-05] MEDS ORDERED: CEFTRIAXONE 2GM/50ML 50 ML IV SCH (15:00)
[2024-01-05] MEDS: MEROPENEM 1G/100ML 100 ML IV SCH (15:18)
[2024-01-06] VITALS (7 sets, daily range): BP systolic 102–155; BP diastolic 53–76; PULSE 96–105; RESP 18; TEMP 35.2806–36.83628; O2SAT 95–98
[2024-01-06] MEDS: FUROSEMIDE 40MG/4 ML UDC PO SCH (08:25)
[2024-01-06 12:01] LABS: BG CARBOXYHEMOGLOBIN 1.3 % (0.5-1.5); BG DEOXYHEMOGLOBIN 13.7 % (0.0-5.0); BG FRACTION INSPIRED OXYGEN 21; BG HCO3 ACT 41.6 mmol/L (21.0-28.0); BG OXYGEN SATURATION 86.1 % (94.0-98.0); BG PCO2 48.5 mmHg (32.0-45.0); BG PH 7.551 (7.350-7.450); BG SAMPLE SITE RIGHT RADIAL; BG TOTAL HEMOGLOBIN 12.6 g/dL (12.0-16.0); BG VENT MODE ROOM AIR
[2024-01-06] MEDS: VANCOMYCIN 1.5GM/250ML 250 ML IV NR (15:13)
[2024-01-06] MEDS: CARVEDILOL 3.125 MG TABLET PO SCH (21:00)
[2024-01-06] MEDS: FUROSEMIDE 40MG TABLET PO SCH (21:50)
[2024-01-07] VITALS (7 sets, daily range): BP systolic 95–110; BP diastolic 50–64; PULSE 89–102; RESP 18–20; TEMP 35.66952–36.28068; O2SAT 88–99
[2024-01-07] MEDS: VANCOMYCIN 750MG/150ML (BAXTER) IV SCH (02:35)
[2024-01-07 11:51] LABS: BASOPHILS % 0.4 % (0.0-2.0); EOSINOPHILS % 2.2 % (0.0-5.0); HEMATOCRIT. 35.2 % (36.0-48.0); HEMOGLOBIN. 11.7 g/dL (12.0-16.0); LYMPHOCYTES % 19.5 % (20.0-50.0); MEAN CORPUSCULAR HEMOGLOBIN 33.2 pg (28.0-32.0); MEAN CORPUSCULAR HGB CONC 33.3 g/dL (31.0-37.0); MEAN CORPUSCULAR VOLUME 99.7 fL (81.0-99.0); MEAN PLATELET VOLUME 8.3 fl (7.4-10.4); MONOCYTES % 10.8 % (2.0-8.0); NEUTROPHILS % 67.1 % (40.0-76.0); PLATELET 193 x1000/uL (130-400); RED BLOOD CELL COUNT 3.53 mill/uL (4.2-5.4); RED CELL DISTRIBUTION WIDTH 16.1 % (11.6-14.6); WHITE BLOOD COUNT 6.1 x1000/uL (4.5-11.0)
[2024-01-07 11:52] LABS: CHLORIDE 96 mEq/L (98-107); POTASSIUM 3.8 mEq/L (3.5-5.1); SODIUM 139 mEq/L (136-145)
[2024-01-07 11:53] LABS: CARBON DIOXIDE 40 mEq/L (21-32)
[2024-01-07 11:54] LABS: CALCIUM 9.1 mg/dL (8.7-10.4)
[2024-01-07 11:58] LABS: CREATININE 0.9 mg/dL (0.6-1.0)
[2024-01-07 11:59] LABS: GLUCOSE 137 mg/dL (70-105); UREA NITROGEN BLOOD 14 mg/dL (9-23)
[2024-01-07 12:51] LABS: TROPONIN I HIGH SENSITIVITY 220 ng/L (3.0-34)
[2024-01-07] MEDS: ENOXAPARIN 120MG/0.8ML SYR SUBCUT SCH (22:06)
[2024-01-08 04:00] VITALS: BP 128/67; PULSE 91; RESP 18; TEMP 36.61404; O2SAT 99
[2024-01-08] MEDS: MULTIVITAMINS,THER W-MINERALS TABLET PO SCH (09:52)
[2024-01-08 12:00] VITALS: BP 100/74; PULSE 84; RESP 20; TEMP 36.33624; O2SAT 99
[2024-01-08 16:00] VITALS: BP 119/70; PULSE 84; RESP 20; TEMP 36.50292; O2SAT 98
[2024-01-08 20:00] VITALS: BP 102/59; PULSE 86; RESP 20; TEMP 36.50292; O2SAT 100
[2024-01-09] VITALS: BP 117/81; PULSE 87; RESP 19; TEMP 36.50292; O2SAT 98
[2024-01-09 04:00] VITALS: BP 152/90; PULSE 83; RESP 17; TEMP 36.16956; O2SAT 100
[2024-01-09 16:00] VITALS: BP 135/76; PULSE 87; RESP 20; TEMP 36.9474; O2SAT 96
[2024-01-09 17:07] LABS: BG BASE EXCESS 14.9 mmol/L (-2.0-3.0); BG CARBOXYHEMOGLOBIN 0.8 % (0.5-1.5); BG FRACTION INSPIRED OXYGEN 24; BG HCO3 ACT 41.2 mmol/L (21.0-28.0); BG METHEMOGLOBIN 0.3 % (0.5-1.5); BG OXYGEN SATURATION 94.9 % (94.0-98.0); BG OXYHEMOGLOBIN 93.9 % (94.0-98.0); BG PCO2 60.2 mmHg (32.0-45.0); BG PH 7.453 (7.350-7.450); BG SAMPLE SITE RIGHT RADIAL; BG TOTAL HEMOGLOBIN 11.3 g/dL (12.0-16.0); BG VENT MODE NASAL CANNULA
[2024-01-09 19:56] VITALS: RESP 18
[2024-01-09 20:00] VITALS: BP 135/84; PULSE 81; RESP 16; TEMP 36.55848; O2SAT 96
[2024-01-09 20:05] VITALS: O2SAT 93
[2024-01-10] VITALS: BP 115/74; PULSE 77; RESP 18; TEMP 36.55848; O2SAT 97
[2024-01-10 07:09] LABS: CARBON DIOXIDE 39 mEq/L (21-32); CHLORIDE 98 mEq/L (98-107); SODIUM 139 mEq/L (136-145)
[2024-01-10 07:10] LABS: CALCIUM 9.3 mg/dL (8.7-10.4)
[2024-01-10 07:13] LABS: CREATININE 0.8 mg/dL (0.6-1.0)
[2024-01-10 07:15] LABS: GLUCOSE 145 mg/dL (70-105); UREA NITROGEN BLOOD 16 mg/dL (9-23)
[2024-01-10 08:00] VITALS: BP 138/68; PULSE 75; RESP 20; TEMP 36.16956; O2SAT 99
[2024-01-10 12:00] VITALS: BP 131/76; PULSE 78; RESP 20; TEMP 36.22512; O2SAT 99
[2024-01-10 16:00] VITALS: BP 117/61; PULSE 75; RESP 20; TEMP 36.05844; O2SAT 99
[2024-01-10 20:00] VITALS: BP 116/79; PULSE 82; RESP 17; TEMP 36.83628; O2SAT 96
[2024-01-11] VITALS: BP 144/85; PULSE 81; RESP 20; TEMP 36.44736; O2SAT 100
[2024-01-11 04:00] VITALS: BP 130/79; PULSE 80; RESP 19; TEMP 36.33624; O2SAT 100
[2024-01-11 08:00] VITALS: BP 152/90; PULSE 78; RESP 20; TEMP 36.16956; O2SAT 99
[2024-01-11 12:00] VITALS: BP 163/77; PULSE 83; RESP 20; TEMP 36.16956; O2SAT 97
[2024-01-11] MEDS: HYDROCODONE/ACETAMINOPHEN 5/325MG TABLET PO PRN (13:35)
[2024-01-11 16:00] VITALS: BP 129/77; PULSE 82; RESP 20; TEMP 36.16956; O2SAT 98
[2024-01-11 20:00] VITALS: BP 118/59; PULSE 90; RESP 20; TEMP 36.6696; O2SAT 100
[2024-01-12] VITALS: BP 141/79; PULSE 74; RESP 20; TEMP 36.72516; O2SAT 100
[2024-01-12 04:00] VITALS: BP 141/79; PULSE 60; RESP 19; TEMP 36.61404; O2SAT 100
[2024-01-12 08:00] VITALS: BP 135/76; PULSE 79; RESP 20; TEMP 36.6696; O2SAT 99
[2024-01-12] MEDS: VANCOMYCIN 750MG PMX (XELLIA) 150 ML IV SCH (09:10)
[2024-01-12 12:00] VITALS: BP 123/79; PULSE 70; RESP 18; TEMP 36.114; O2SAT 100
[2024-01-12 12:57] LABS: HEMATOCRIT 35.1 % (36.0-48.0); MEAN CORPUSCULAR HEMOGLOBIN 31.6 pg (28.0-32.0); MEAN CORPUSCULAR HGB CONC 31.3 g/dL (31.0-37.0); MEAN CORPUSCULAR VOLUME 100.9 fL (81.0-99.0); PLATELET 237 x1000/uL (130-400); RED BLOOD CELL COUNT 3.48 mill/uL (4.2-5.4); RED CELL DISTRIBUTION WIDTH 16.1 % (11.6-14.6); WHITE BLOOD COUNT 4.7 x1000/uL (4.5-11.0)
[2024-01-12 13:12] LABS: CHLORIDE 98 mEq/L (98-107); POTASSIUM 4.4 mEq/L (3.5-5.1); SODIUM 139 mEq/L (136-145)
[2024-01-12 13:14] LABS: CALCIUM 9.5 mg/dL (8.7-10.4)
[2024-01-12 13:18] LABS: CREATININE 0.7 mg/dL (0.6-1.0); GLUCOSE 98 mg/dL (70-105); UREA NITROGEN BLOOD 16 mg/dL (9-23)
[2024-01-12 13:30] LABS: CARBON DIOXIDE > 40 mEq/L (21-32)
[2024-01-12 16:00] VITALS: BP 145/85; PULSE 78; RESP 20; TEMP 35.5584; O2SAT 99
[2024-01-12 20:00] VITALS: BP 135/83; PULSE 79; RESP 18; TEMP 36.114; O2SAT 96
[2024-01-13] VITALS: BP 144/83; PULSE 84; RESP 18; TEMP 36.78072; O2SAT 95
[2024-01-13 08:00] VITALS: BP 140/56; PULSE 82; RESP 19; TEMP 36.83628; O2SAT 99
[2024-01-13 09:46] LABS: CHLORIDE 98 mEq/L (98-107); POTASSIUM 4.4 mEq/L (3.5-5.1); SODIUM 139 mEq/L (136-145)
[2024-01-13 09:47] LABS: CARBON DIOXIDE 40 mEq/L (21-32)
[2024-01-13 09:48] LABS: CALCIUM 9.6 mg/dL (8.7-10.4)
[2024-01-13 09:52] LABS: CREATININE 0.7 mg/dL (0.6-1.0)
[2024-01-13 09:53] LABS: GLUCOSE 132 mg/dL (70-105); UREA NITROGEN BLOOD 16 mg/dL (9-23)
[2024-01-13 12:00] VITALS: BP 108/72; PULSE 78; RESP 18; TEMP 36.78072; O2SAT 100
[2024-01-13 16:00] VITALS: BP 138/85; PULSE 74; RESP 18; TEMP 36.114; O2SAT 100
[2024-01-13 20:00] VITALS: BP 136/84; PULSE 100; RESP 18; TEMP 37.05852; O2SAT 96
[2024-01-14] VITALS: BP 138/85; PULSE 79; RESP 18; TEMP 36.44736
[2024-01-14 04:00] VITALS: BP 133/82; PULSE 101; RESP 16; TEMP 36.44736; O2SAT 17
[2024-01-14 08:00] VITALS: BP 141/83; PULSE 55; RESP 20; TEMP 36.6696; TEMP 36.66960; O2SAT 99
[2024-01-14] MEDS: VANCOMYCIN 1GM/200ML PMX (BAXTER) IV SCH (09:12)
[2024-01-14] MEDS ORDERED: SPIR25TA6 MT (11:12)
[2024-01-14] MEDS ORDERED: LOSA50TA41 MT (11:12)
[2024-01-14] MEDS ORDERED: CARV6.2548 MT (11:12)
[2024-01-14] MEDS ORDERED: POTA-205 MT (11:12)
[2024-01-14] MEDS ORDERED: TRAZODONE HCL 50MG TABLET PO PRN (12:15)
[2024-01-14 12:58] VITALS: BP 141/83; PULSE 55; TEMP 98; O2SAT 97
[2024-01-14] MEDS ORDERED: IPRATROPIUM/ALBUTEROL 0.5-3(2.5)MG/3ML NEB HHN PRN (13:15)
[2024-01-14] MEDS ORDERED: GUAIFENESIN-DM 200MG-20MG/10ML UDC PO PRN (13:15)
[2024-01-14] MEDS ORDERED: IPRATROPIUM/ALBUTEROL 0.5-3(2.5)MG/3ML NEB HHN SCH (18:00)
== END 2024-01-14 15:30 | disposition home or self-care (01) | DRG 194 ==
LOC: ER 20:12 → EDBEDREQTM 21:49 → EDBEDREQ 21:49 → 5WST 01-02 00:54 → 8WST 01-02 14:06 → 6WST 01-06 18:22
PROVIDERS: ADMIT Internal Medicine; ATTEND Internal Medicine
PROC: 5A09357 Assistance with Respiratory Ventilation, Less than 24 Consecutive Hours, Continuous Positive Airway Pressure (ICD-10-PCS; 2024-01-02)
PROC: 0JBN0ZZ Excision of Right Lower Leg Subcutaneous Tissue and Fascia, Open Approach (ICD-10-PCS; principal; 2024-01-04)
PROC: 5A09357 Assistance with Respiratory Ventilation, Less than 24 Consecutive Hours, Continuous Positive Airway Pressure (ICD-10-PCS; 2024-01-09)
DX: I11.0 Hypertensive heart disease with heart failure (principal); J96.01 Acute respiratory failure with hypoxia; I21.4 Non-ST elevation (NSTEMI) myocardial infarction; E87.3 Alkalosis; L03.115 Cellulitis of right lower limb; F32.3 Major depressive disorder, single episode, severe with psychotic features; E87.20 Acidosis, unspecified; L03.116 Cellulitis of left lower limb; J96.02 Acute respiratory failure with hypercapnia; E66.01 Morbid (severe) obesity due to excess calories; L97.822 Non-pressure chronic ulcer of other part of left lower leg with fat layer exposed; L97.815 Non-pressure chronic ulcer of other part of right lower leg with muscle involvement without evidence of necrosis; I50.23 Acute on chronic systolic (congestive) heart failure; N39.0 Urinary tract infection, site not specified; I42.9 Cardiomyopathy, unspecified; J44.89 Other specified chronic obstructive pulmonary disease; E78.5 Hyperlipidemia, unspecified; F43.10 Post-traumatic stress disorder, unspecified; F41.9 Anxiety disorder, unspecified; F17.210 Nicotine dependence, cigarettes, uncomplicated; Z79.82 Long term (current) use of aspirin; Z68.41 Body mass index [BMI] 40.0-44.9, adult; Z91.148 Patient's other noncompliance with medication regimen for other reason
CPT/HCPCS: 36415; 36600; 71045; 73590; 80048; 80061; 80076; 80202; 80305; 81003; 82375; 82550; 82553; 82805; 83605; 83735; 83880; 84100; 84145; 84439; 84443; 84480; 84484; 85025; 85027; 85379; 87070; 87077; 87186; 93005; 93306; 93970; 94640; 94660; 97162; 99285; C1893; J1650; J1940; J2185; J2270; J2405; J2470; J2543; J3370; J3475

== ENCOUNTER 2024-03-19 20:36 | Inpatient (IN) | payer MEDICAID, OTHER ==
[2024-03-18 04:00] VITALS: BP 173/131; PULSE 96; RESP 18; TEMP 37.252
[~2024-03-19] VITALS: Ht 160 cm; Wt 105.9 kg
[~2024-03-19 20:36] MED LIST changes: -AMLO10TA80 MT; -AMLO5TAB5 MT; +CARV6.2548 MT; -CEPH500C2 MT; -FURO-151 MT; +LOSA50TA41 MT; +POTA-205 MT; +SPIR25TA6 MT; -SULF1TAB47 MT
[2024-03-19] MEDS ORDERED: BACITRACIN 14GM TUBE TOP ONE (22:45)
[2024-03-19 23:03] LABS: BASOPHILS % 1.1 % (0.0-2.0); DIFFERENTIAL COMMENT 0; EOSINOPHILS % 0.7 % (0.0-5.0); HEMATOCRIT. 38.9 % (36.0-48.0); HEMOGLOBIN. 12.3 g/dL (12.0-16.0); LYMPHOCYTES % 21.6 % (20.0-50.0); MEAN CORPUSCULAR HEMOGLOBIN 32.1 pg (28.0-32.0); MEAN CORPUSCULAR HGB CONC 31.5 g/dL (31.0-37.0); MEAN CORPUSCULAR VOLUME 101.8 fL (81.0-99.0); MEAN PLATELET VOLUME 8.1 fl (7.4-10.4); MONOCYTES % 8.1 % (2.0-8.0); NEUTROPHILS % 68.5 % (40.0-76.0); PLATELET 206 x1000/uL (130-400); RED BLOOD CELL COUNT 3.83 mill/uL (4.2-5.4); RED CELL DISTRIBUTION WIDTH 17.6 % (11.6-14.6)
[2024-03-19 23:11] LABS: CHLORIDE 112 mEq/L (98-107); POTASSIUM 3.6 mEq/L (3.5-5.1); SODIUM 146 mEq/L (136-145)
[2024-03-19 23:12] LABS: CARBON DIOXIDE 29 mEq/L (21-32)
[2024-03-19 23:13] LABS: CALCIUM 8.9 mg/dL (8.7-10.4); INR 1.1; PARTIAL THROMBOPLASTIN TIME 25.6 sec (23.4-31.0); PROTHROMBIN TIME 12.6 sec (9.6-11.0)
[2024-03-19 23:17] LABS: CREATININE 1.2 mg/dL (0.6-1.0); GLUCOSE 93 mg/dL (70-105); UREA NITROGEN BLOOD 17 mg/dL (9-23)
[2024-03-19 23:18] LABS: ETHANOL BLOOD < 10 mg/dL (<10)
[2024-03-19 23:21] LABS: TROPONIN I HIGH SENSITIVITY 51 ng/L (3.0-34)
[2024-03-19] MEDS: HYDROCODONE/ACETAMINOPHEN 5/325MG TABLET PO ONE (23:50)
[2024-03-20] MEDS: ACETAMINOPHEN 1000MG/100ML 100 ML IV ONE (01:20)
[2024-03-20] MEDS ORDERED: ASPIRIN 325MG EC TABLET PO NR (01:30)
[2024-03-20] MEDS ORDERED: HYDRALAZINE 20MG/ML VIAL IV NR (05:00)
[2024-03-20] MEDS: CLONIDINE 0.1MG TABLET PO PRN (05:42)
[2024-03-20] MEDS: MORPHINE SULFATE 2 MG/ML INJ (NOT FOR IM USE) IV PRN (05:59)
[2024-03-20 08:00] VITALS: BP 119/76; PULSE 83; RESP 20; TEMP 36.6696; O2SAT 96
[2024-03-20] MEDS ORDERED: NALOXONE HCL 0.4MG/ML VIAL IV PRN (08:45)
[2024-03-20] MEDS ORDERED: ALBUTEROL (0.5%) 2.5MG/0.5ML NEB HHN SCH (09:00)
[2024-03-20] MEDS: LOSARTAN 25 MG TABLET PO SCH (09:24)
[2024-03-20] MEDS: SPIRONOLACTONE 25MG TABLET PO SCH (09:24)
[2024-03-20] MEDS: CARVEDILOL 6.25 MG TABLET PO SCH (09:24)
[2024-03-20] MEDS: POTASSIUM CHLORIDE 20MEQ/PACKET PO SCH (09:25)
[2024-03-20] MEDS ORDERED: ALBUTEROL (0.083%) 2.5MG/3ML NEB HHN PRN (09:30)
[2024-03-20] MEDS: FLUTICASONE PROPIONATE 50MCG/SPRAY BOTTLE BOTHNSTRLS SCH (11:00)
[2024-03-20 12:00] VITALS: BP 129/79; PULSE 76; RESP 22; TEMP 36.00288; O2SAT 96
[2024-03-20 13:46] LABS: BASOPHILS % 0.5 % (0.0-2.0); DIFFERENTIAL COMMENT 0; EOSINOPHILS % 1.2 % (0.0-5.0); HEMOGLOBIN. 10.7 g/dL (12.0-16.0); LYMPHOCYTES % 22.3 % (20.0-50.0); MEAN CORPUSCULAR HEMOGLOBIN 31.5 pg (28.0-32.0); MEAN CORPUSCULAR HGB CONC 30.6 g/dL (31.0-37.0); MEAN PLATELET VOLUME 8.3 fl (7.4-10.4); PLATELET 177 x1000/uL (130-400); RED CELL DISTRIBUTION WIDTH 18.5 % (11.6-14.6)
[2024-03-20 13:52] LABS: CHLORIDE 114 mEq/L (98-107); POTASSIUM 3.7 mEq/L (3.5-5.1); SODIUM 146 mEq/L (136-145)
[2024-03-20 13:53] LABS: CALCIUM 8.4 mg/dL (8.7-10.4); CARBON DIOXIDE 24 mEq/L (21-32)
[2024-03-20 13:58] LABS: CREATININE 1.1 mg/dL (0.6-1.0); GLUCOSE 146 mg/dL (70-105); UREA NITROGEN BLOOD 15 mg/dL (9-23)
[2024-03-20 14:00] LABS: ALANINE AMINOTRANSFERASE 16 IU/L (10-49); ALBUMIN 3.2 g/dL (3.2-4.8); ASPARTATE AMINOTRANSFERASE 24 IU/L (<34)
[2024-03-20 14:01] LABS: BILIRUBIN TOTAL 0.9 mg/dL (0.1-1.0); PROTEIN TOTAL 5.8 g/dL (6.0-8.3)
[2024-03-20 16:00] VITALS: BP 148/90; PULSE 74; RESP 20; TEMP 36.6696; O2SAT 93
[2024-03-20 17:00] LABS: CLARITY URINE CLOUDY (CLEAR); COLOR URINE DARK YELLOW (YELLOW); GLUCOSE URINE NEGATIVE (NEGATIVE); KETONES URINE TRACE (NEGATIVE); LEUKOCYTE ESTERASE URINE 1+ (NEGATIVE); NITRITE URINE NEGATIVE (NEGATIVE); OCCULT BLOOD URINE NEGATIVE (NEGATIVE); PH URINE 5.5 (4.5-8.0); PROTEIN URINE 2+ (NEGATIVE); SPECIFIC GRAVITY URINE 1.029 (1.005-1.030)
[2024-03-20 17:21] LABS: WHITE BLOOD CELL CASTS URINE 0-5 /lpf
[2024-03-20 17:22] LABS: BACTERIA URINE TRACE; RBC URINE NONE SEEN /hpf (0-2); SQUAMOUS EPITHELIAL CELL URINE 1+ /lpf (RARE/1+)
[2024-03-20] MEDS: ENOXAPARIN 30MG/0.3ML SYR SUBCUT SCH (18:30)
[2024-03-20 20:00] VITALS: BP 141/80; PULSE 80; RESP 18; TEMP 36.44736; O2SAT 99
[2024-03-20 22:55] LABS: TROPONIN I HIGH SENSITIVITY 55 ng/L (3.0-34)
[2024-03-20] MEDS: ATORVASTATIN CALCIUM 20MG TABLET PO SCH (23:17)
[2024-03-20] MEDS: OXYCODONE HCL/ACETAMINOPHEN 5/325MG TABLET PO PRN (23:17)
[2024-03-20 23:28] VITALS: BP 149/103
[2024-03-21] VITALS: BP 113/84; PULSE 77; RESP 18; TEMP 36.55848; O2SAT 98
[2024-03-21 04:00] VITALS: BP 126/80; PULSE 62; RESP 18; TEMP 36.16956; O2SAT 98
[2024-03-21 08:00] VITALS: BP 136/88; PULSE 74; RESP 20; TEMP 36.114; O2SAT 95
[2024-03-21] MEDS: ASPIRIN 81MG EC TABLET PO SCH (08:51)
[2024-03-21 12:00] VITALS: BP 100/64; PULSE 80; RESP 18; TEMP 35.9; O2SAT 98
[2024-03-21 12:55] LABS: *AMPHETAMINES SCREEN URINE NEGATIVE (NEGATIVE); *BARBITURATES SCREEN URINE NEGATIVE (NEGATIVE); *BENZODIAZEPINES SCREEN URINE NEGATIVE (NEGATIVE); *COCAINE SCREEN URINE NEGATIVE (NEGATIVE); CANNABINOID URINE SCREEN NEGATIVE (NEGATIVE); ECSTASY MDMA SCREEN URINE NEGATIVE (NEGATIVE); METHADONE URINE SCREEN NEGATIVE (NEGATIVE); OPIATES URINE SCREEN PRESUMPTIVE POSITIVE (NEGATIVE); PHENCYCLIDINE URINE SCREEN PRESUMTIVE POSITIVE (NEGATIVE)
[2024-03-21 16:00] VITALS: BP 116/72; PULSE 72; RESP 18; TEMP 35.9; O2SAT 96
[2024-03-21 20:00] VITALS: BP 140/86; PULSE 71; RESP 18; TEMP 36.1; O2SAT 96
[2024-03-22] VITALS: BP 131/89; PULSE 74; RESP 17; TEMP 37.2; O2SAT 98
[2024-03-22] MEDS ORDERED: IOHEXOL-350 100 ML BOTTLE ONE (00:03)
[2024-03-22] MEDS: CEFTRIAXONE 1GM/50ML 50 ML IV SCH (03:27)
[2024-03-22 04:00] VITALS: BP 136/91; PULSE 65; RESP 17; TEMP 36.4; O2SAT 95
[2024-03-22 08:00] VITALS: BP 130/74; PULSE 65; RESP 20; TEMP 36.1; O2SAT 98
[2024-03-22] MEDS ORDERED: AZITHROMYCIN 500MG/250ML 250 ML IV SCH (09:15)
[2024-03-22 12:00] VITALS: BP 119/84; PULSE 69; RESP 20; TEMP 36.7; O2SAT 96
[2024-03-22] MEDS: AZITHROMYCIN 500 MG TABLET PO SCH (12:08)
[2024-03-22 16:00] VITALS: BP 130/83; PULSE 71; RESP 20; TEMP 36.6; O2SAT 97
[2024-03-22 19:50] LABS: CARBON DIOXIDE 24 mEq/L (21-32); CHLORIDE 110 mEq/L (98-107); POTASSIUM 4.9 mEq/L (3.5-5.1); SODIUM 141 mEq/L (136-145)
[2024-03-22 19:51] LABS: CALCIUM 9.3 mg/dL (8.7-10.4)
[2024-03-22 19:55] LABS: BASOPHILS % 0.6 % (0.0-2.0); DIFFERENTIAL COMMENT 0; EOSINOPHILS % 1.1 % (0.0-5.0); HEMATOCRIT. 39.2 % (36.0-48.0); HEMOGLOBIN. 12.1 g/dL (12.0-16.0); MEAN CORPUSCULAR HEMOGLOBIN 32.1 pg (28.0-32.0); MEAN CORPUSCULAR HGB CONC 30.9 g/dL (31.0-37.0); MEAN CORPUSCULAR VOLUME 103.6 fL (81.0-99.0); MONOCYTES % 9.7 % (2.0-8.0); NEUTROPHILS % 61.6 % (40.0-76.0); PLATELET 224 x1000/uL (130-400); RED BLOOD CELL COUNT 3.79 mill/uL (4.2-5.4); RED CELL DISTRIBUTION WIDTH 18.6 % (11.6-14.6); WHITE BLOOD COUNT 4.5 x1000/uL (4.5-11.0)
[2024-03-22 19:56] LABS: CREATININE 1.1 mg/dL (0.6-1.0); GLUCOSE 87 mg/dL (70-105); UREA NITROGEN BLOOD 16 mg/dL (9-23)
[2024-03-22 19:58] LABS: PHOSPHORUS 4.1 mg/dL (2.5-4.9)
[2024-03-22 20:00] VITALS: BP 129/85; PULSE 80; RESP 19; TEMP 36.2; O2SAT 94
[2024-03-22 20:55] LABS: TROPONIN I HIGH SENSITIVITY 468 ng/L (3.0-34)
[2024-03-22] MEDS: CARVEDILOL 3.125 MG TABLET PO SCH (22:21)
[2024-03-23] VITALS: BP 137/93; PULSE 77; RESP 20; TEMP 36.8; O2SAT 98
[2024-03-23 07:35] LABS: CHLORIDE 110 mEq/L (98-107); POTASSIUM 5.3 mEq/L (3.5-5.1); SODIUM 142 mEq/L (136-145)
[2024-03-23 07:36] LABS: CALCIUM 9.3 mg/dL (8.7-10.4); CARBON DIOXIDE 24 mEq/L (21-32)
[2024-03-23 07:41] LABS: GLUCOSE 86 mg/dL (70-105); UREA NITROGEN BLOOD 17 mg/dL (9-23)
[2024-03-23 07:43] LABS: PHOSPHORUS 3.9 mg/dL (2.5-4.9)
[2024-03-23 07:52] LABS: BASOPHILS % 0.5 % (0.0-2.0); DIFFERENTIAL COMMENT 0; EOSINOPHILS % 0.8 % (0.0-5.0); HEMATOCRIT. 39.4 % (36.0-48.0); HEMOGLOBIN. 12.3 g/dL (12.0-16.0); LYMPHOCYTES % 28.7 % (20.0-50.0); MEAN CORPUSCULAR HGB CONC 31.2 g/dL (31.0-37.0); MEAN CORPUSCULAR VOLUME 102.8 fL (81.0-99.0); MEAN PLATELET VOLUME 8.9 fl (7.4-10.4); MONOCYTES % 10.1 % (2.0-8.0); NEUTROPHILS % 59.9 % (40.0-76.0); PLATELET 198 x1000/uL (130-400); RED BLOOD CELL COUNT 3.83 mill/uL (4.2-5.4); WHITE BLOOD COUNT 4.7 x1000/uL (4.5-11.0)
[2024-03-23 08:25] VITALS: BP 143/88; PULSE 80; RESP 20; TEMP 36.8; O2SAT 99
[2024-03-23] MEDS: FUROSEMIDE 40MG/4ML VIAL IVP SCH (08:27)
[2024-03-23 08:28] LABS: TROPONIN I HIGH SENSITIVITY 631 ng/L (3.0-34)
[2024-03-23 12:00] VITALS: BP 138/84; PULSE 84; RESP 20; TEMP 37.1; O2SAT 99
[2024-03-23 16:00] VITALS: BP 126/81; PULSE 73; RESP 18; TEMP 36.6
[2024-03-23 20:00] VITALS: BP 161/94; PULSE 79; RESP 18; TEMP 36.4; O2SAT 94
[2024-03-24] VITALS: BP 142/97; PULSE 78; RESP 18; TEMP 36.3; O2SAT 95
[2024-03-24 08:00] VITALS: BP 139/86; PULSE 76; RESP 20; TEMP 36.6; O2SAT 100
[2024-03-24] MEDS: ACETAMINOPHEN 500MG TABLET PO PRN (09:34)
[2024-03-24 12:00] VITALS: BP 134/89; PULSE 70; RESP 20; TEMP 36.6; O2SAT 98
[2024-03-24 12:42] LABS: CHLORIDE 107 mEq/L (98-107); POTASSIUM 4.8 mEq/L (3.5-5.1); SODIUM 138 mEq/L (136-145)
[2024-03-24 12:43] LABS: CALCIUM 8.9 mg/dL (8.7-10.4); CARBON DIOXIDE 25 mEq/L (21-32)
[2024-03-24 12:48] LABS: GLUCOSE 105 mg/dL (70-105); UREA NITROGEN BLOOD 14 mg/dL (9-23)
[2024-03-24 13:10] LABS: AMPHETAMINE SCREEN Negative ng/mL (Cutoff:50); BARBITURATE SCREEN Negative ug/mL (Cutoff:0.1); BENZODIAZEPINE SCREEN Negative ng/mL (Cutoff:20); CANNABINOID SCREEN Negative ng/mL (Cutoff:5)
[2024-03-24 16:00] VITALS: BP 139/72; PULSE 71; RESP 20; TEMP 36.5; O2SAT 99
[2024-03-24 20:00] VITALS: BP 168/101; PULSE 81; RESP 18; TEMP 36.6; O2SAT 99
[2024-03-24 22:08] VITALS: BP 142/80; PULSE 68; RESP 19; O2SAT 97
[2024-03-25] VITALS: BP 157/99; PULSE 88; RESP 18; TEMP 36.7; O2SAT 98
[2024-03-25 04:00] VITALS: BP 142/93; PULSE 69; RESP 20; TEMP 36.9; O2SAT 99
[2024-03-25 08:00] VITALS: BP 154/96; PULSE 77; RESP 18; TEMP 36.4; O2SAT 95
[2024-03-25 09:13] LABS: BASOPHILS % 0.6 % (0.0-2.0); DIFFERENTIAL COMMENT 0; EOSINOPHILS % 0.6 % (0.0-5.0); HEMATOCRIT. 36.4 % (36.0-48.0); HEMOGLOBIN. 11.7 g/dL (12.0-16.0); LYMPHOCYTES % 23.6 % (20.0-50.0); MEAN CORPUSCULAR HEMOGLOBIN 32.2 pg (28.0-32.0); MEAN CORPUSCULAR HGB CONC 32.1 g/dL (31.0-37.0); MEAN CORPUSCULAR VOLUME 100.2 fL (81.0-99.0); MEAN PLATELET VOLUME 8.5 fl (7.4-10.4); NEUTROPHILS % 66.2 % (40.0-76.0); PLATELET 197 x1000/uL (130-400); RED BLOOD CELL COUNT 3.63 mill/uL (4.2-5.4); WHITE BLOOD COUNT 4.8 x1000/uL (4.5-11.0)
[2024-03-25 09:15] LABS: CHLORIDE 107 mEq/L (98-107); POTASSIUM 4.3 mEq/L (3.5-5.1); SODIUM 139 mEq/L (136-145)
[2024-03-25 09:16] LABS: CALCIUM 8.8 mg/dL (8.7-10.4); CARBON DIOXIDE 27 mEq/L (21-32)
[2024-03-25 09:21] LABS: CREATININE 0.9 mg/dL (0.6-1.0); GLUCOSE 125 mg/dL (70-105); UREA NITROGEN BLOOD 19 mg/dL (9-23)
[2024-03-25 09:25] LABS: THYROID STIMULATING HORMONE 4.09 uIU/mL (0.55-4.78)
[2024-03-25 09:27] LABS: TROPONIN I HIGH SENSITIVITY 324 ng/L (3.0-34)
[2024-03-25] MEDS: FUROSEMIDE 40MG/4ML VIAL IVP SCH (10:30)
[2024-03-25 12:00] VITALS: BP 162/100; PULSE 83; RESP 18; TEMP 36.5; O2SAT 96
[2024-03-25 16:00] VITALS: BP 149/67; PULSE 77; RESP 20; TEMP 36.4; O2SAT 96
[2024-03-25] MEDS ORDERED: MAGNESIUM HYDROXIDE 400MG/5ML 30ML UDC PO PRN (21:30)
[2024-03-25] MEDS: OXYCODONE HCL/ACETAMINOPHEN 5/325MG TABLET PO PRN (22:07)
[2024-03-26 04:00] VITALS: BP 157/107; PULSE 57; RESP 20; TEMP 36.5; O2SAT 97
[2024-03-26] MEDS: METOLAZONE 2.5MG TABLET PO NR (05:40)
[2024-03-26 08:00] VITALS: BP 163/123; PULSE 77; RESP 18; TEMP 36.6; O2SAT 98
[2024-03-26] MEDS: DOCUSATE SODIUM 100MG CAPSULE PO SCH (08:19)
[2024-03-26 09:21] LABS: BASOPHILS % 0.8 % (0.0-2.0); EOSINOPHILS % 0.8 % (0.0-5.0); HEMOGLOBIN. 11.9 g/dL (12.0-16.0); LYMPHOCYTES % 27.2 % (20.0-50.0); MEAN CORPUSCULAR HEMOGLOBIN 32.4 pg (28.0-32.0); MEAN CORPUSCULAR HGB CONC 32.1 g/dL (31.0-37.0); MEAN CORPUSCULAR VOLUME 101.1 fL (81.0-99.0); MONOCYTES % 7.6 % (2.0-8.0); NEUTROPHILS % 63.6 % (40.0-76.0); RED BLOOD CELL COUNT 3.67 mill/uL (4.2-5.4); RED CELL DISTRIBUTION WIDTH 17.4 % (11.6-14.6); WHITE BLOOD COUNT 5.2 x1000/uL (4.5-11.0)
[2024-03-26 09:25] LABS: CARBON DIOXIDE 25 mEq/L (21-32); CHLORIDE 104 mEq/L (98-107); POTASSIUM 4.3 mEq/L (3.5-5.1); SODIUM 137 mEq/L (136-145)
[2024-03-26 09:26] LABS: CALCIUM 9.4 mg/dL (8.7-10.4)
[2024-03-26 09:31] LABS: CREATININE 0.9 mg/dL (0.6-1.0); GLUCOSE 93 mg/dL (70-105); UREA NITROGEN BLOOD 16 mg/dL (9-23)
[2024-03-26 09:53] LABS: DIFFERENTIAL COMMENT 1
[2024-03-26 12:00] VITALS: BP 156/92; PULSE 79; RESP 18; TEMP 36.5; O2SAT 98
[2024-03-26 13:53] LABS: PLATELET 189 x1000/uL (130-400)
[2024-03-26 13:54] LABS: ADD RBC MORPHOLOGY YES; ANISOCYTOSIS 1+; PLATELET ESTIMATE NORMAL
[2024-03-26 16:00] VITALS: BP 137/100; PULSE 84; RESP 18; TEMP 36.4; O2SAT 94
[2024-03-26] MEDS: LOSARTAN 50 MG TABLET PO SCH (16:49)
[2024-03-26 20:00] VITALS: BP 157/80; PULSE 80; RESP 18; TEMP 36.7; O2SAT 98
[2024-03-27 04:00] VITALS: BP 138/87; PULSE 82; RESP 20; TEMP 36.9; O2SAT 98
[2024-03-27 07:38] LABS: CHLORIDE 101 mEq/L (98-107); SODIUM 139 mEq/L (136-145)
[2024-03-27 07:39] LABS: CARBON DIOXIDE 32 mEq/L (21-32)
[2024-03-27 07:40] LABS: CALCIUM 9.3 mg/dL (8.7-10.4)
[2024-03-27 07:44] LABS: CREATININE 0.9 mg/dL (0.6-1.0); GLUCOSE 104 mg/dL (70-105)
[2024-03-27 07:45] LABS: UREA NITROGEN BLOOD 16 mg/dL (9-23)
[2024-03-27 08:00] VITALS: BP 133/71; PULSE 76; RESP 18; TEMP 36.2; O2SAT 99
[2024-03-27 08:25] LABS: BASOPHILS % 0.6 % (0.0-2.0); EOSINOPHILS % 0.5 % (0.0-5.0); HEMATOCRIT. 38.5 % (36.0-48.0); HEMOGLOBIN. 12.4 g/dL (12.0-16.0); LYMPHOCYTES % 19.2 % (20.0-50.0); MEAN CORPUSCULAR HEMOGLOBIN 32.3 pg (28.0-32.0); MEAN CORPUSCULAR HGB CONC 32.3 g/dL (31.0-37.0); MEAN PLATELET VOLUME 8.6 fl (7.4-10.4); MONOCYTES % 10.3 % (2.0-8.0); NEUTROPHILS % 69.4 % (40.0-76.0); PLATELET 217 x1000/uL (130-400); RED BLOOD CELL COUNT 3.85 mill/uL (4.2-5.4); WHITE BLOOD COUNT 4.9 x1000/uL (4.5-11.0)
[2024-03-27 12:00] VITALS: BP 150/89; PULSE 81; RESP 18; TEMP 36.3; O2SAT 97
[2024-03-27] MEDS ORDERED: FURO40TA5 MT (14:22)
[2024-03-27] MEDS ORDERED: ASPI-1406 PO (14:22)
[2024-03-27] MEDS ORDERED: COR3 PO (14:22)
[2024-03-27 16:00] VITALS: BP 158/90; PULSE 60; RESP 18; TEMP 35.9; O2SAT 98
[2024-03-27 17:25] VITALS: BP 158/90; PULSE 60; TEMP 96.6; O2SAT 99
[2024-03-28 13:06] LABS: DIHYDROCODEINE UNCONJUGATED Negative (.); OPIATES SCREEN ++POSITIVE++ ng/mL (Cutoff:5); OXYCODONE SCREEN Negative ng/mL (Cutoff:5)
== END 2024-03-27 19:17 | disposition home health service (06) | DRG 383 ==
LOC: ER 20:36 → 8WST 23:15
PROVIDERS: ADMIT Internal Medicine; ATTEND Internal Medicine
DX: L03.116 Cellulitis of left lower limb (principal); I42.9 Cardiomyopathy, unspecified; J18.9 Pneumonia, unspecified organism; S32.019A Unspecified fracture of first lumbar vertebra, initial encounter for closed fracture; I11.0 Hypertensive heart disease with heart failure; L97.913 Non-pressure chronic ulcer of unspecified part of right lower leg with necrosis of muscle; I50.22 Chronic systolic (congestive) heart failure; L03.115 Cellulitis of right lower limb; D64.9 Anemia, unspecified; E66.9 Obesity, unspecified; N39.0 Urinary tract infection, site not specified; J44.89 Other specified chronic obstructive pulmonary disease; R26.2 Difficulty in walking, not elsewhere classified; L97.923 Non-pressure chronic ulcer of unspecified part of left lower leg with necrosis of muscle; E78.5 Hyperlipidemia, unspecified; I25.2 Old myocardial infarction; Z79.51 Long term (current) use of inhaled steroids; Z87.891 Personal history of nicotine dependence; Z91.199 Patient's noncompliance with other medical treatment and regimen due to unspecified reason; Z68.41 Body mass index [BMI] 40.0-44.9, adult; W01.0XXA Fall on same level from slipping, tripping and stumbling without subsequent striking against object, initial encounter; Y93.89 Activity, other specified; Y92.89 Other specified places as the place of occurrence of the external cause; Y99.8 Other external cause status
CPT/HCPCS: 36415; 71045; 71275; 72131; 80048; 80053; 80305; 80307; 80320; 81003; 83605; 83735; 83880; 84100; 84443; 84484; 85025; 87070; 93005; 93970; 97166; 97530; 97535; 99285; J0696; J1650; J1940; J2270; Q9967; G0480; J0131

== ENCOUNTER 2024-06-11 11:15 | Inpatient (IN) | payer MEDICAID, OTHER ==
[~2024-06-11] VITALS: Ht 162.6 cm; Wt 103.4 kg
[~2024-06-11 11:15] MED LIST changes: +ASPI-1406 PO; -CARV6.2548 MT; +COR3 PO; +FURO40TA5 MT; -IBUP-2029 MT; -LOSA-412 PO; -POTA-205 MT; -SPIR25TA6 MT
[2024-06-11 12:30] VITALS: RESP 22
[2024-06-11] MEDS: FUROSEMIDE 40MG/4ML VIAL IVP ONE (12:50)
[2024-06-11] MEDS: PIPERACILLIN/TAZO 3.375G/50ML 50 ML IV ONE (12:50)
[2024-06-11 12:51] LABS: BASOPHILS % 0.7 % (0.0-2.0); DIFFERENTIAL COMMENT 0; EOSINOPHILS % 0.1 % (0.0-5.0); HEMATOCRIT. 38.9 % (36.0-48.0); HEMOGLOBIN. 12.4 g/dL (12.0-16.0); LYMPHOCYTES % 29.2 % (20.0-50.0); MEAN CORPUSCULAR HEMOGLOBIN 30.6 pg (28.0-32.0); MEAN CORPUSCULAR HGB CONC 31.7 g/dL (31.0-37.0); MEAN CORPUSCULAR VOLUME 96.3 fL (81.0-99.0); MEAN PLATELET VOLUME 8.9 fl (7.4-10.4); MONOCYTES % 7.6 % (2.0-8.0); NEUTROPHILS % 62.4 % (40.0-76.0); PLATELET 228 x1000/uL (130-400); RED BLOOD CELL COUNT 4.04 mill/uL (4.2-5.4); RED CELL DISTRIBUTION WIDTH 17.3 % (11.6-14.6)
[2024-06-11] MEDS: SODIUM CHLORIDE 0.9% (SEPSIS BOLUS) IV ONE (12:58)
[2024-06-11 13:00] LABS: CHLORIDE 107 mEq/L (98-107); POTASSIUM 4.1 mEq/L (3.5-5.1); SODIUM 143 mEq/L (136-145)
[2024-06-11 13:01] LABS: CALCIUM 9.5 mg/dL (8.7-10.4); CARBON DIOXIDE 30 mEq/L (21-32)
[2024-06-11 13:06] LABS: CREATININE 0.9 mg/dL (0.6-1.0); GLUCOSE 113 mg/dL (70-105)
[2024-06-11 13:07] LABS: UREA NITROGEN BLOOD 16 mg/dL (9-23)
[2024-06-11 13:13] LABS: INR 1.1; PROTHROMBIN TIME 11.9 sec (9.6-11.0)
[2024-06-11 13:18] LABS: TROPONIN I HIGH SENSITIVITY 36 ng/L (3.0-34)
[2024-06-11] MEDS: VANCOMYCIN 1G PREMIX 200 ML IV ONE (13:19)
[2024-06-11] MEDS: DIPHENHYDRAMINE 50MG/ML VIAL IV ONE (13:58)
[2024-06-11 14:04] LABS: ALANINE AMINOTRANSFERASE 16 IU/L (10-49); ALBUMIN 3.2 g/dL (3.2-4.8); ASPARTATE AMINOTRANSFERASE 27 IU/L (<34); BILIRUBIN DIRECT 0.5 mg/dL (<=3.0); BILIRUBIN TOTAL 1.1 mg/dL (0.1-1.0); PROTEIN TOTAL 7.1 g/dL (6.0-8.3)
[2024-06-11 14:32] LABS: CLARITY URINE CLEAR (CLEAR); COLOR URINE YELLOW (YELLOW); GLUCOSE URINE NEGATIVE (NEGATIVE); KETONES URINE NEGATIVE (NEGATIVE); LEUKOCYTE ESTERASE URINE 2+ (NEGATIVE); NITRITE URINE NEGATIVE (NEGATIVE); OCCULT BLOOD URINE NEGATIVE (NEGATIVE); PH URINE 6.5 (4.5-8.0); PROTEIN URINE 2+ (NEGATIVE)
[2024-06-11 14:46] LABS: BACTERIA URINE TRACE; RBC URINE 0-2 /hpf (0-2); SQUAMOUS EPITHELIAL CELL URINE 1+ /lpf (RARE/1+); YEAST URINE NONE SEEN
[2024-06-11] MEDS ORDERED: ACETAMINOPHEN 325MG TABLET PO PRN ×2 (15:15)
[2024-06-11] MEDS ORDERED: MAGNESIUM/ALUMINUM HYDROXIDE/SIMETHICONE 30ML UDC PO PRN (15:15)
[2024-06-11] MEDS ORDERED: DOCUSATE SODIUM 100MG CAPSULE PO PRN (15:15)
[2024-06-11] MEDS ORDERED: GUAIFENESIN 200MG/10ML SUGAR FREE UDC PO PRN (15:15)
[2024-06-11] MEDS ORDERED: ONDANSETRON HCL 4MG/2ML INJ IV PRN (15:15)
[2024-06-11] MEDS ORDERED: DEXTROSE 50% WATER 50ML SYRINGE IV PRN (15:15)
[2024-06-11] MEDS ORDERED: NA PHOS,M-B/NA PHOS,DI-BA ENEMA 118ML PR PRN (15:15)
[2024-06-11] MEDS ORDERED: IPRATROPIUM/ALBUTEROL 0.5-3(2.5)MG/3ML NEB HHN PRN (15:15)
[2024-06-11 16:13] LABS: BG BASE EXCESS -1.9 mmol/L (-2.0-3.0); BG CARBOXYHEMOGLOBIN 1.7 % (0.5-1.5); BG DEOXYHEMOGLOBIN 1.6 % (0.0-5.0); BG FRACTION INSPIRED OXYGEN 36; BG HCO3 ACT 24.1 mmol/L (21.0-28.0); BG METHEMOGLOBIN 0.1 % (0.5-1.5); BG OXYGEN SATURATION 98.4 % (94.0-98.0); BG OXYHEMOGLOBIN 96.6 % (94.0-98.0); BG PCO2 46.1 mmHg (32.0-45.0); BG PH 7.337 (7.350-7.450); BG PO2 130.4 mmHg (83.0-108.0); BG SAMPLE SITE RIGHT BRACHIAL; BG TOTAL HEMOGLOBIN 13.6 g/dL (12.0-16.0); BG VENT MODE NASAL CANNULA
[2024-06-11 16:18] LABS: PHOSPHORUS 3.7 mg/dL (2.5-4.9)
[2024-06-11] MEDS: CLONIDINE 0.1MG TABLET PO PRN (17:56)
[2024-06-11] MEDS: BLOOD SUGAR DIAGNOSTIC STRIP TEST SCH (18:06)
[2024-06-11] MEDS ORDERED: HYDRALAZINE 20MG/ML VIAL IV PRN (18:15)
[2024-06-11 19:05] VITALS: BP 164/107; PULSE 67; RESP 16; TEMP 36.7
[2024-06-11 20:00] VITALS: BP 157/108; PULSE 89; RESP 20; TEMP 36.7; O2SAT 98
[2024-06-11] MEDS ORDERED: PIPERACILLIN/TAZO 3.375G/50ML 50 ML IV SCH (20:00)
[2024-06-11] MEDS: FUROSEMIDE 40MG/4ML VIAL IV SCH (21:00)
[2024-06-11] MEDS: ATORVASTATIN CALCIUM 20MG TABLET PO SCH (21:00)
[2024-06-11] MEDS: CARVEDILOL 3.125 MG TABLET PO SCH (21:00)
[2024-06-11] MEDS: SULFAMETHOXAZOLE/TRIMETHOPRIM 800/160MG TABLET PO SCH (21:00)
[2024-06-11] MEDS: ENOXAPARIN 30MG/0.3ML SYR SUBCUT SCH (21:00)
[2024-06-11] MEDS: GUAIFENESIN 600MG ER TABLET PO SCH (21:00)
[2024-06-11] MEDS: IPRATROPIUM/ALBUTEROL 0.5-3(2.5)MG/3ML NEB HHN SCH (21:40)
[2024-06-11] MEDS: SODIUM CHLORIDE 3% FOR INH 4ML NEB INH NR (21:41)
[2024-06-11] MEDS ORDERED: IOHEXOL-350 100 ML BOTTLE ONE (23:27)
[2024-06-12] VITALS (8 sets, daily range): BP systolic 118–159; BP diastolic 75–105; PULSE 65–97; RESP 16–20; TEMP 36.2–36.9; O2SAT 93–100
[2024-06-12] MEDS ORDERED: VANCOMYCIN 1.25GM/250ML IV SCH
[2024-06-12 00:45] LABS: CREATINE KINASE 44 IU/L (34-145)
[2024-06-12 01:06] LABS: TROPONIN I HIGH SENSITIVITY 72 ng/L (3.0-34)
[2024-06-12] MEDS: FUROSEMIDE 40MG/4ML VIAL IV SCH (06:31)
[2024-06-12 08:40] LABS: BASOPHILS % 0.6 % (0.0-2.0); EOSINOPHILS % 0.7 % (0.0-5.0); HEMATOCRIT. 37.5 % (36.0-48.0); HEMOGLOBIN. 11.7 g/dL (12.0-16.0); MEAN CORPUSCULAR HEMOGLOBIN 30.9 pg (28.0-32.0); MEAN CORPUSCULAR HGB CONC 31.1 g/dL (31.0-37.0); MEAN CORPUSCULAR VOLUME 99.2 fL (81.0-99.0); MEAN PLATELET VOLUME 8.5 fl (7.4-10.4); NEUTROPHILS % 61.7 % (40.0-76.0); PLATELET 218 x1000/uL (130-400); RED BLOOD CELL COUNT 3.78 mill/uL (4.2-5.4); RED CELL DISTRIBUTION WIDTH 17.3 % (11.6-14.6); WHITE BLOOD COUNT 4.8 x1000/uL (4.5-11.0)
[2024-06-12 08:47] LABS: CHLORIDE 105 mEq/L (98-107); POTASSIUM 4.2 mEq/L (3.5-5.1); SODIUM 140 mEq/L (136-145)
[2024-06-12 08:48] LABS: CALCIUM 8.7 mg/dL (8.7-10.4); CARBON DIOXIDE 31 mEq/L (21-32)
[2024-06-12 08:53] LABS: CREATININE 1.1 mg/dL (0.6-1.0); GLUCOSE 98 mg/dL (70-105); TRIGLYCERIDE 86 mg/dL (0-150); UREA NITROGEN BLOOD 17 mg/dL (9-23)
[2024-06-12 08:54] LABS: LDL CHOLESTEROL 98 mg/dL (5-100)
[2024-06-12 08:55] LABS: CHOLESTEROL 147 mg/dL (<200); CREATINE KINASE 43 IU/L (34-145); HDL CHOLESTEROL 29 mg/dL (>65)
[2024-06-12 08:56] LABS: T4 FREE 0.98 ng/dL (0.89-1.76); THYROID STIMULATING HORMONE 1.53 uIU/mL (0.55-4.78)
[2024-06-12] MEDS: ENOXAPARIN 40MG/0.4ML SYR SUBCUT SCH (09:00)
[2024-06-12 10:00] LABS: TROPONIN I HIGH SENSITIVITY 167 ng/L (3.0-34)
[2024-06-12] MEDS: ASPIRIN 81MG TABLET PO SCH (10:24)
[2024-06-12] MEDS: LOSARTAN 25 MG TABLET PO SCH (10:25)
[2024-06-12] MEDS: PANTOPRAZOLE SODIUM 40 MG/VIAL IV SCH (13:21)
[2024-06-12] MEDS: FUROSEMIDE 100MG/10ML VIAL IV SCH (18:02)
[2024-06-12 19:09] LABS: TROPONIN I HIGH SENSITIVITY 205 ng/L (3.0-34)
[2024-06-12 20:10] LABS: *AMPHETAMINES SCREEN URINE NEGATIVE (NEGATIVE); *BARBITURATES SCREEN URINE NEGATIVE (NEGATIVE); *BENZODIAZEPINES SCREEN URINE NEGATIVE (NEGATIVE)
[2024-06-12 20:11] LABS: *COCAINE SCREEN URINE PRESUMPTIVE POSITIVE (NEGATIVE)
[2024-06-12 20:12] LABS: CANNABINOID URINE SCREEN NEGATIVE (NEGATIVE); ECSTASY MDMA SCREEN URINE NEGATIVE (NEGATIVE); METHADONE URINE SCREEN NEGATIVE (NEGATIVE); OPIATES URINE SCREEN NEGATIVE (NEGATIVE); PHENCYCLIDINE URINE SCREEN PRESUMTIVE POSITIVE (NEGATIVE)
[2024-06-13] VITALS (7 sets, daily range): BP systolic 114–140; BP diastolic 72–90; PULSE 51–79; RESP 18–20; TEMP 35.7–36.7; O2SAT 97–99
[2024-06-13 06:59] LABS: CARBON DIOXIDE 31 mEq/L (21-32); CHLORIDE 104 mEq/L (98-107); POTASSIUM 3.9 mEq/L (3.5-5.1); SODIUM 141 mEq/L (136-145)
[2024-06-13 07:00] LABS: BASOPHILS % 0.4 % (0.0-2.0); EOSINOPHILS % 0.9 % (0.0-5.0); HEMATOCRIT. 36.9 % (36.0-48.0); HEMOGLOBIN. 11.8 g/dL (12.0-16.0); LYMPHOCYTES % 17.2 % (20.0-50.0); MEAN CORPUSCULAR HEMOGLOBIN 31.4 pg (28.0-32.0); MEAN CORPUSCULAR HGB CONC 31.8 g/dL (31.0-37.0); MEAN CORPUSCULAR VOLUME 98.6 fL (81.0-99.0); MEAN PLATELET VOLUME 8.8 fl (7.4-10.4); MONOCYTES % 11.9 % (2.0-8.0); NEUTROPHILS % 69.6 % (40.0-76.0); PLATELET 193 x1000/uL (130-400); RED BLOOD CELL COUNT 3.75 mill/uL (4.2-5.4); RED CELL DISTRIBUTION WIDTH 17.4 % (11.6-14.6); WHITE BLOOD COUNT 4.7 x1000/uL (4.5-11.0)
[2024-06-13 07:05] LABS: GLUCOSE 109 mg/dL (70-105); UREA NITROGEN BLOOD 18 mg/dL (9-23)
[2024-06-13 08:01] LABS: TROPONIN I HIGH SENSITIVITY 193 ng/L (3.0-34)
[2024-06-13] MEDS ORDERED: DEXTROSE 50% WATER 50ML SYRINGE IV PRN (09:30)
[2024-06-13] MEDS: POTASSIUM CHLORIDE 20MEQ TABLET SR PO NR (10:22)
[2024-06-13] MEDS: INSULIN LISPRO 100 UNITS/ML SUBCUT SCH (12:50)
[2024-06-13] MEDS: TRAZODONE HCL 50MG TABLET PO SCH (21:00)
[2024-06-13] MEDS: SERTRALINE HCL 25MG TABLET PO SCH (21:00)
[2024-06-14] VITALS: BP 100/75; PULSE 102; RESP 21; TEMP 36.2; O2SAT 95
[2024-06-14 04:00] VITALS: BP 144/78; PULSE 65; RESP 20; TEMP 36.3; O2SAT 95
[2024-06-14 08:00] VITALS: BP 121/72; PULSE 72; RESP 18; TEMP 36.4; O2SAT 99
[2024-06-14 08:46] VITALS: PULSE 66; RESP 18; O2SAT 97
[2024-06-14 12:00] VITALS: BP 124/80; PULSE 70; RESP 20; TEMP 36.2; O2SAT 98
[2024-06-14] MEDS: POTASSIUM CHLORIDE 20MEQ TABLET SR PO SCH (12:17)
[2024-06-14 13:21] VITALS: BP 124/80; PULSE 70; TEMP 97.1; O2SAT 98
[2024-06-14] MEDS ORDERED: FUROSEMIDE 40MG/4 ML UDC PO SCH (18:00)
== END 2024-06-14 14:30 | disposition home or self-care (01) | DRG 133 ==
LOC: ER 11:15 → 6WST 14:29 → EDBEDREQTM 14:31 → EDBEDREQ 14:31
PROVIDERS: ADMIT Hospitalist; ATTEND Hospitalist
PROC: 5A09357 Assistance with Respiratory Ventilation, Less than 24 Consecutive Hours, Continuous Positive Airway Pressure (ICD-10-PCS; principal; 2024-06-11)
DX: J96.21 Acute and chronic respiratory failure with hypoxia (principal); I21.A1 Myocardial infarction type 2; I50.43 Acute on chronic combined systolic (congestive) and diastolic (congestive) heart failure; L03.115 Cellulitis of right lower limb; I42.9 Cardiomyopathy, unspecified; L03.116 Cellulitis of left lower limb; I11.0 Hypertensive heart disease with heart failure; F17.200 Nicotine dependence, unspecified, uncomplicated; Z91.148 Patient's other noncompliance with medication regimen for other reason; I16.9 Hypertensive crisis, unspecified; I34.0 Nonrheumatic mitral (valve) insufficiency; E78.5 Hyperlipidemia, unspecified; E66.9 Obesity, unspecified; L97.822 Non-pressure chronic ulcer of other part of left lower leg with fat layer exposed; L97.812 Non-pressure chronic ulcer of other part of right lower leg with fat layer exposed; F17.210 Nicotine dependence, cigarettes, uncomplicated; F32.A Depression, unspecified; G47.00 Insomnia, unspecified; G47.33 Obstructive sleep apnea (adult) (pediatric); J44.89 Other specified chronic obstructive pulmonary disease; Z87.01 Personal history of pneumonia (recurrent); Z79.899 Other long term (current) drug therapy; Z68.39 Body mass index [BMI] 39.0-39.9, adult
CPT/HCPCS: 36415; 36600; 71045; 71275; 80048; 80061; 80076; 80305; 81003; 82375; 82550; 82805; 82962; 83036; 83605; 83735; 83880; 84100; 84145; 84439; 84443; 84484; 85025; 85379; 93005; 93306; 93970; 94070; 94640; 94660; 94664; 97162; 98960; 99291; A4606; J1200; J1650; J1940; J2470; J2543; J3370; J7030; Q9967

== ENCOUNTER 2024-07-23 17:20 | Inpatient (IN) | payer MEDICAID, OTHER ==
[~2024-07-23] VITALS: Ht 152.4 cm; Wt 103.9 kg
[~2024-07-23 17:20] MED LIST changes: -ACET-283 PO
[2024-07-23] MEDS: FUROSEMIDE 40MG/4ML VIAL IVP ONE (17:45)
[2024-07-23] MEDS: OXYCODONE HCL/ACETAMINOPHEN 5/325MG TABLET PO ONE (17:45)
[2024-07-23 18:12] LABS: DIFFERENTIAL COMMENT 0; EOSINOPHILS % 0.5 % (0.0-5.0); HEMATOCRIT. 41.1 % (36.0-48.0); LYMPHOCYTES % 29.7 % (20.0-50.0); MEAN CORPUSCULAR HEMOGLOBIN 31.8 pg (28.0-32.0); MEAN CORPUSCULAR HGB CONC 31.7 g/dL (31.0-37.0); MEAN CORPUSCULAR VOLUME 100.3 fL (81.0-99.0); MEAN PLATELET VOLUME 8.6 fl (7.4-10.4); NEUTROPHILS % 61.8 % (40.0-76.0); PLATELET 184 x1000/uL (130-400); WHITE BLOOD COUNT 3.6 x1000/uL (4.5-11.0)
[2024-07-23 18:23] LABS: CHLORIDE 112 mEq/L (98-107); POTASSIUM 4.3 mEq/L (3.5-5.1); SODIUM 140 mEq/L (136-145)
[2024-07-23 18:24] LABS: CALCIUM 8.8 mg/dL (8.7-10.4); CARBON DIOXIDE 22 mEq/L (21-32)
[2024-07-23 18:29] LABS: CREATININE 1.1 mg/dL (0.6-1.0); GLUCOSE 105 mg/dL (70-105); UREA NITROGEN BLOOD 13 mg/dL (9-23)
[2024-07-23 18:38] LABS: INR 1.2; PARTIAL THROMBOPLASTIN TIME 28.2 sec (23.4-31.0)
[2024-07-23 18:40] LABS: TROPONIN I HIGH SENSITIVITY 49 ng/L (3.0-34)
[2024-07-23] MEDS: ASPIRIN 325MG EC TABLET PO ONE (19:01)
[2024-07-23] MEDS ORDERED: NITROGLYCERIN 0.4MG TABLET SL SL PRN (19:15)
[2024-07-23] MEDS ORDERED: MORPHINE SULFATE 2 MG/ML INJ (NOT FOR IM USE) IV PRN (19:15)
[2024-07-23] MEDS ORDERED: GUAIFENESIN 200MG/10ML SUGAR FREE UDC PO PRN (19:15)
[2024-07-23] MEDS ORDERED: ONDANSETRON HCL 4MG/2ML INJ IV PRN (19:15)
[2024-07-23] MEDS ORDERED: MAGNESIUM/ALUMINUM HYDROXIDE/SIMETHICONE 30ML UDC PO PRN (19:15)
[2024-07-23] MEDS ORDERED: CLONIDINE 0.1MG TABLET PO PRN (19:15)
[2024-07-23] MEDS ORDERED: IPRATROPIUM/ALBUTEROL 0.5-3(2.5)MG/3ML NEB HHN PRN (19:15)
[2024-07-23] MEDS ORDERED: DOCUSATE SODIUM 100MG CAPSULE PO PRN (19:15)
[2024-07-23] MEDS ORDERED: ACETAMINOPHEN 325MG TABLET PO PRN ×2 (19:15)
[2024-07-23] MEDS: CLOPIDOGREL 75MG TABLET PO ONE (19:41)
[2024-07-23] MEDS: HYDRALAZINE 20MG/ML VIAL IV NR (19:43)
[2024-07-23] MEDS: PIPERACILLIN/TAZO 3.375G/50ML 50 ML IV NR (21:16)
[2024-07-23] MEDS: SODIUM CHLORIDE 0.9% 1,000 ML IV SCH (21:16)
[2024-07-23] MEDS: CARVEDILOL 3.125 MG TABLET PO SCH (21:44)
[2024-07-23] MEDS: ATORVASTATIN CALCIUM 40MG TABLET PO SCH (21:44)
[2024-07-23] MEDS: MUPIROCIN 2% OINT 15GM NS STA (21:45)
[2024-07-23] MEDS: MUPIROCIN 2% OINT 15GM TOP STA (21:47)
[2024-07-23] MEDS: VANCOMYCIN 1.5GM PMX (XELLIA) 300 ML IV NR (22:48)
[2024-07-23 23:10] VITALS: BP 138/97; PULSE 83; RESP 19; TEMP 36.5; O2SAT 96
[2024-07-23 23:33] LABS: CREATINE KINASE MB FRACTION 1.4 ng/mL (0.5-3.6)
[2024-07-24] MEDS ORDERED: NALOXONE HCL 0.4MG/ML VIAL IV PRN (02:00)
[2024-07-24 04:00] VITALS: BP 165/104; PULSE 85; RESP 20; TEMP 36.4; O2SAT 96
[2024-07-24] MEDS: HYDROCODONE/ACETAMINOPHEN 5/325MG TABLET PO PRN (04:48)
[2024-07-24 06:21] LABS: CREATINE KINASE MB FRACTION 2.1 ng/mL (0.5-3.6)
[2024-07-24] MEDS: PIPERACILLIN/TAZO 3.375G/50ML 50 ML IV SCH (06:21)
[2024-07-24] MEDS: FUROSEMIDE 40MG/4ML VIAL IV SCH (06:22)
[2024-07-24 06:36] LABS: BASOPHILS % 0.9 % (0.0-2.0); DIFFERENTIAL COMMENT 0; EOSINOPHILS % 0.9 % (0.0-5.0); HEMATOCRIT. 41.3 % (36.0-48.0); LYMPHOCYTES % 24.8 % (20.0-50.0); MEAN CORPUSCULAR HEMOGLOBIN 31.6 pg (28.0-32.0); MEAN CORPUSCULAR HGB CONC 31.6 g/dL (31.0-37.0); MEAN CORPUSCULAR VOLUME 100.1 fL (81.0-99.0); MEAN PLATELET VOLUME 8.6 fl (7.4-10.4); MONOCYTES % 14.8 % (2.0-8.0); NEUTROPHILS % 58.6 % (40.0-76.0); PLATELET 168 x1000/uL (130-400); RED BLOOD CELL COUNT 4.13 mill/uL (4.2-5.4); RED CELL DISTRIBUTION WIDTH 18.8 % (11.6-14.6); WHITE BLOOD COUNT 4.4 x1000/uL (4.5-11.0)
[2024-07-24 07:48] LABS: CHLORIDE 106 mEq/L (98-107); HDL CHOLESTEROL < 20 mg/dL (>65); LDL CHOLESTEROL 14 mg/dL (5-100); POTASSIUM 4.5 mEq/L (3.5-5.1); SODIUM 141 mEq/L (136-145); TRIGLYCERIDE 20 mg/dL (0-150); UREA NITROGEN BLOOD < 5 mg/dL (9-23)
[2024-07-24 07:49] LABS: CREATINE KINASE < 15 IU/L (34-145); CREATININE < 0.2 mg/dL (0.6-1.0)
[2024-07-24 07:50] LABS: CHOLESTEROL < 25 mg/dL (<200); T4 FREE 1.11 ng/dL (0.89-1.76); THYROID STIMULATING HORMONE 2.12 uIU/mL (0.55-4.78)
[2024-07-24 08:00] VITALS: BP 156/100; PULSE 20; RESP 20; TEMP 36.4; O2SAT 100
[2024-07-24 08:07] LABS: CALCIUM 1.3 mg/dL (8.7-10.4); CARBON DIOXIDE < 10 mEq/L (21-32); GLUCOSE 14 mg/dL (70-105); TROPONIN I HIGH SENSITIVITY 48 ng/L (3.0-34)
[2024-07-24] MEDS: ENOXAPARIN 30MG/0.3ML SYR SUBCUT SCH (10:08)
[2024-07-24] MEDS: CLOPIDOGREL 75MG TABLET PO SCH (10:09)
[2024-07-24] MEDS: SPIRONOLACTONE 12.5MG TABLET PO SCH (10:09)
[2024-07-24] MEDS: ASPIRIN 81MG EC TABLET PO SCH (10:09)
[2024-07-24] MEDS: EMPAGLIFLOZIN 10MG TABLET PO SCH (10:10)
[2024-07-24] MEDS: LOSARTAN 50 MG TABLET PO SCH (10:10)
[2024-07-24 12:00] VITALS: BP 118/90; PULSE 66; RESP 18; TEMP 36.7; O2SAT 98
[2024-07-24] MEDS: SODIUM BICARBONATE 8.4% 50MEQ/50ML SYR IV SCH (12:27)
[2024-07-24] MEDS: CALCIUM GLUCONATE 1GM PREMIX 50 ML IV SCH (12:31)
[2024-07-24 16:00] VITALS: BP 156/84; PULSE 75; RESP 20; TEMP 36.7; O2SAT 95
[2024-07-24] MEDS ORDERED: VANCOMYCIN 750MG PREMIX 150 ML IV SCH (17:00)
[2024-07-24] MEDS: VANCOMYCIN 1G PREMIX 200 ML IV SCH (17:05)
[2024-07-24 20:00] VITALS: BP 127/87; PULSE 69; RESP 20; TEMP 36.8; O2SAT 98
[2024-07-24 20:36] LABS: CHLORIDE 104 mEq/L (98-107); POTASSIUM 4.5 mEq/L (3.5-5.1); SODIUM 139 mEq/L (136-145)
[2024-07-24 20:37] LABS: CALCIUM 8.4 mg/dL (8.7-10.4); CARBON DIOXIDE 26 mEq/L (21-32)
[2024-07-24 20:42] LABS: CREATININE 1.3 mg/dL (0.6-1.0); GLUCOSE 108 mg/dL (70-105); UREA NITROGEN BLOOD 15 mg/dL (9-23)
[2024-07-24 20:44] LABS: ALBUMIN 3.2 g/dL (3.2-4.8); PHOSPHORUS 4.7 mg/dL (2.5-4.9)
[2024-07-25] VITALS: BP 139/80; PULSE 79; RESP 20; TEMP 36.8; O2SAT 98
[2024-07-25 04:00] VITALS: BP 134/60; PULSE 79; RESP 20; TEMP 36.7; O2SAT 98
[2024-07-25 08:00] VITALS: BP 130/86; PULSE 73; RESP 18; TEMP 36.7; O2SAT 98
[2024-07-25 12:00] VITALS: BP 150/97; PULSE 76; RESP 18; TEMP 36.2; O2SAT 98
[2024-07-25] MEDS: MAGNESIUM 2 G PREMIX 50 ML IV NR (12:43)
[2024-07-25 12:54] LABS: CLARITY URINE CLEAR (CLEAR); COLOR URINE YELLOW (YELLOW); GLUCOSE URINE 1+ (NEGATIVE); KETONES URINE NEGATIVE (NEGATIVE); LEUKOCYTE ESTERASE URINE TRACE (NEGATIVE); NITRITE URINE NEGATIVE (NEGATIVE); OCCULT BLOOD URINE NEGATIVE (NEGATIVE); PROTEIN URINE NEGATIVE (NEGATIVE); SPECIFIC GRAVITY URINE 1.008 (1.005-1.030); UROBILINOGEN URINE 0.2 E.U./dL (0.2-1.0)
[2024-07-25 13:11] LABS: *AMPHETAMINES SCREEN URINE NEGATIVE (NEGATIVE); *BARBITURATES SCREEN URINE NEGATIVE (NEGATIVE); *BENZODIAZEPINES SCREEN URINE NEGATIVE (NEGATIVE); *COCAINE SCREEN URINE NEGATIVE (NEGATIVE); CANNABINOID URINE SCREEN NEGATIVE (NEGATIVE); ECSTASY MDMA SCREEN URINE NEGATIVE (NEGATIVE); METHADONE URINE SCREEN NEGATIVE (NEGATIVE); OPIATES URINE SCREEN NEGATIVE (NEGATIVE); PHENCYCLIDINE URINE SCREEN PRESUMTIVE POSITIVE (NEGATIVE)
[2024-07-25 13:45] LABS: RBC URINE 0-2 /hpf (0-2); SQUAMOUS EPITHELIAL CELL URINE 1+ /lpf (RARE/1+)
[2024-07-25 13:47] LABS: BACTERIA URINE FEW; TRICHOMONAS URINE FEW; YEAST URINE NONE SEEN
[2024-07-25 16:00] VITALS: BP 123/88; PULSE 65; RESP 18; TEMP 36; O2SAT 97
[2024-07-25 20:00] VITALS: BP 150/86; PULSE 57; RESP 20; TEMP 36; O2SAT 97
[2024-07-25 20:55] LABS: BASOPHILS % 0.4 % (0.0-2.0); DIFFERENTIAL COMMENT 0; EOSINOPHILS % 1.2 % (0.0-5.0); HEMOGLOBIN. 12.6 g/dL (12.0-16.0); LYMPHOCYTES % 13.5 % (20.0-50.0); MEAN CORPUSCULAR HEMOGLOBIN 31.4 pg (28.0-32.0); MEAN CORPUSCULAR HGB CONC 30.8 g/dL (31.0-37.0); MEAN PLATELET VOLUME 8.4 fl (7.4-10.4); NEUTROPHILS % 73.9 % (40.0-76.0); PLATELET 159 x1000/uL (130-400); RED BLOOD CELL COUNT 4.02 mill/uL (4.2-5.4); RED CELL DISTRIBUTION WIDTH 19.1 % (11.6-14.6); WHITE BLOOD COUNT 5.1 x1000/uL (4.5-11.0)
[2024-07-25 21:00] LABS: POTASSIUM 3.9 mEq/L (3.5-5.1)
[2024-07-25 21:01] LABS: CALCIUM 8.4 mg/dL (8.7-10.4)
[2024-07-25 21:05] LABS: CREATININE 1.4 mg/dL (0.6-1.0)
[2024-07-26] VITALS: BP 94/68; PULSE 62; RESP 20; TEMP 36.4; O2SAT 99
[2024-07-26 04:00] VITALS: BP 51/112; PULSE 78; RESP 20; TEMP 36; O2SAT 98
[2024-07-26 08:00] VITALS: BP 112/71; PULSE 52; RESP 18; TEMP 36; O2SAT 98
[2024-07-26 11:05] LABS: BASOPHILS % 0.4 % (0.0-2.0); DIFFERENTIAL COMMENT 0; EOSINOPHILS % 1.2 % (0.0-5.0); HEMATOCRIT. 40.9 % (36.0-48.0); HEMOGLOBIN. 12.8 g/dL (12.0-16.0); MEAN CORPUSCULAR HGB CONC 31.4 g/dL (31.0-37.0); MEAN CORPUSCULAR VOLUME 101.8 fL (81.0-99.0); MEAN PLATELET VOLUME 8.8 fl (7.4-10.4); MONOCYTES % 7.3 % (2.0-8.0); NEUTROPHILS % 69.1 % (40.0-76.0); PLATELET 145 x1000/uL (130-400); RED BLOOD CELL COUNT 4.01 mill/uL (4.2-5.4); RED CELL DISTRIBUTION WIDTH 18.8 % (11.6-14.6); WHITE BLOOD COUNT 3.5 x1000/uL (4.5-11.0)
[2024-07-26 11:31] LABS: CALCIUM 8.3 mg/dL (8.7-10.4); POTASSIUM 5.5 mEq/L (3.5-5.1)
[2024-07-26 11:37] LABS: CREATININE 1.3 mg/dL (0.6-1.0)
[2024-07-26 12:00] VITALS: BP 110/76; PULSE 60; RESP 18; TEMP 36.2; O2SAT 97
[2024-07-26] MEDS: METOLAZONE 2.5MG TABLET PO NR (14:07)
[2024-07-26 16:00] VITALS: BP 124/52; PULSE 70; RESP 18; TEMP 36.5; O2SAT 98
[2024-07-26] MEDS ORDERED: VANCOMYCIN 1.25GM/250ML 250 ML IV SCH (17:00)
[2024-07-26] MEDS: CALCIUM GLUCONATE 100MG/ML 10ML VIAL IV NR (18:11)
[2024-07-26 20:00] VITALS: BP 135/96; PULSE 97; RESP 18; TEMP 36; O2SAT 100
[2024-07-26] MEDS ORDERED: METRONIDAZOLE 500MG TABLET PO SCH (21:00)
[2024-07-27 06:10] VITALS: BP 126/74; PULSE 73; RESP 18
[2024-07-27 08:00] VITALS: BP 158/102; PULSE 67; RESP 18; TEMP 36.4; O2SAT 97
[2024-07-27] MEDS ORDERED: SODIUM POLYSTYRENE SULFONATE 15 G/60 ML BOT PO ONE (08:00)
[2024-07-27] MEDS ORDERED: QUET25TA MT (08:05)
[2024-07-27] MEDS ORDERED: NICO-645 TD (08:05)
[2024-07-27] MEDS: SODIUM ZIRCONIUM CYCLOSILICATE 10GM/PACKET PO SCH (09:15)
[2024-07-27] MEDS: SERTRALINE HCL 25MG TABLET PO SCH (09:15)
[2024-07-27] MEDS: NICOTINE 14MG PATCH TD SCH (09:18)
[2024-07-27 10:36] LABS: HEMOGLOBIN 11.8 g/dL (12.0-16.0); MEAN CORPUSCULAR HEMOGLOBIN 31.3 pg (28.0-32.0); MEAN CORPUSCULAR HGB CONC 31.9 g/dL (31.0-37.0); MEAN CORPUSCULAR VOLUME 98.2 fL (81.0-99.0); PLATELET 163 x1000/uL (130-400); RED BLOOD CELL COUNT 3.77 mill/uL (4.2-5.4); RED CELL DISTRIBUTION WIDTH 18.2 % (11.6-14.6); WHITE BLOOD COUNT 3.8 x1000/uL (4.5-11.0)
[2024-07-27 11:09] LABS: CARBON DIOXIDE 30 mEq/L (21-32); CHLORIDE 102 mEq/L (98-107); POTASSIUM 3.6 mEq/L (3.5-5.1); SODIUM 141 mEq/L (136-145)
[2024-07-27 11:10] LABS: CALCIUM 8.4 mg/dL (8.7-10.4)
[2024-07-27 11:15] LABS: CREATININE 1.1 mg/dL (0.6-1.0); GLUCOSE 129 mg/dL (70-105); UREA NITROGEN BLOOD 16 mg/dL (9-23)
[2024-07-27] MEDS: MORPHINE SULFATE 4 MG/ML INJ (FOR IV/IM USE) IV PRN (11:18)
[2024-07-27 11:44] VITALS: BP 112/68; PULSE 67; TEMP 97.7; O2SAT 96
[2024-07-27 12:00] VITALS: BP 112/68; PULSE 67; RESP 18; TEMP 36.5; O2SAT 96
[2024-07-27] MEDS ORDERED: VANCOMYCIN 1.25GM/250ML 250 ML IV SCH (17:00)
== END 2024-07-27 17:00 | disposition home or self-care (01) | DRG 194 ==
LOC: ER 17:20 → 8WST 18:43 → EDBEDREQTM 18:49 → EDBEDREQ 18:49 → ENRESERV 20:58
PROVIDERS: ADMIT Hospitalist; ATTEND Hospitalist
DX: I11.0 Hypertensive heart disease with heart failure (principal); E87.20 Acidosis, unspecified; L03.115 Cellulitis of right lower limb; I42.9 Cardiomyopathy, unspecified; L03.116 Cellulitis of left lower limb; E83.51 Hypocalcemia; L97.918 Non-pressure chronic ulcer of unspecified part of right lower leg with other specified severity; L97.928 Non-pressure chronic ulcer of unspecified part of left lower leg with other specified severity; I16.1 Hypertensive emergency; E66.9 Obesity, unspecified; I50.23 Acute on chronic systolic (congestive) heart failure; E78.5 Hyperlipidemia, unspecified; F19.10 Other psychoactive substance abuse, uncomplicated; F17.210 Nicotine dependence, cigarettes, uncomplicated; F39 Unspecified mood [affective] disorder; S81.802A Unspecified open wound, left lower leg, initial encounter; S81.801A Unspecified open wound, right lower leg, initial encounter; X58.XXXA Exposure to other specified factors, initial encounter; Y93.89 Activity, other specified; Y92.89 Other specified places as the place of occurrence of the external cause; Y99.8 Other external cause status
CPT/HCPCS: 36415; 71045; 73590; 80048; 80061; 80202; 80305; 81003; 82040; 82306; 82330; 82550; 82553; 82962; 83036; 83605; 83735; 83880; 84100; 84145; 84439; 84443; 84484; 85025; 85027; 93005; 94640; 97110; 97163; 97167; 97535; 99285; A6449; J0610; J1650; J1940; J2270; J2543; J3370; J3475; J3490

== ENCOUNTER 2024-08-19 17:39 | Inpatient (IN) | payer MEDICAID, OTHER ==
[~2024-08-19] VITALS: Ht 162.6 cm; Wt 96.6 kg
[~2024-08-19 17:39] MED LIST changes: -CARB-274 EACH EAR; -HYDR-4001 MT; +NICO-645 TD; +QUET25TA MT
[2024-08-19 19:25] LABS: HEMATOCRIT. 39.1 % (36.0-48.0); HEMOGLOBIN. 12.7 g/dL (12.0-16.0); MEAN PLATELET VOLUME 8.2 fl (7.4-10.4); PLATELET 229 x1000/uL (130-400); RED BLOOD CELL COUNT 3.98 mill/uL (4.2-5.4); RED CELL DISTRIBUTION WIDTH 18.4 % (11.6-14.6)
[2024-08-19 19:38] LABS: CREATININE 1.1 mg/dL (0.6-1.0); UREA NITROGEN BLOOD 15 mg/dL (9-23)
[2024-08-19 19:40] LABS: EOSINOPHILS % MANUAL 1.0 % (0.0-5.0); LYMPHOCYTES % MANUAL 29.0 % (20.0-60.0); MONOCYTES % MANUAL 13.0 % (2.0-8.0); NEUTROPHILS % MANUAL 57.0 % (45.0-75.0); PLATELET ESTIMATE NORMAL
[2024-08-19 19:54] LABS: TROPONIN I HIGH SENSITIVITY 35 ng/L (3.0-34)
[2024-08-19] MEDS: FUROSEMIDE 100MG/10ML VIAL IVP ONE (20:01)
[2024-08-19] MEDS: HYDRALAZINE 20MG/ML VIAL IV ONE (20:03)
[2024-08-19] MEDS: MORPHINE SULFATE 4 MG/ML INJ (FOR IV/IM USE) IV ONE (20:03)
[2024-08-20] VITALS (7 sets, daily range): BP systolic 149–182; BP diastolic 85–114; PULSE 79–96; RESP 16–20; TEMP 36.4–36.6; O2SAT 89–98
[2024-08-20] MEDS ORDERED: POLYETHYLENE GLYCOL 3350 (17GM) 1 DOSE PACK PO PRN (01:15)
[2024-08-20] MEDS ORDERED: MAGNESIUM/ALUMINUM HYDROXIDE/SIMETHICONE 30ML UDC PO PRN (01:15)
[2024-08-20] MEDS ORDERED: ACETAMINOPHEN 325MG TABLET PO PRN (01:15)
[2024-08-20] MEDS ORDERED: IPRATROPIUM/ALBUTEROL 0.5-3(2.5)MG/3ML NEB HHN PRN (01:15)
[2024-08-20] MEDS ORDERED: ONDANSETRON HCL 4MG/2ML INJ IV PRN (01:15)
[2024-08-20] MEDS ORDERED: NITROGLYCERIN 0.4MG TABLET SL SL PRN (02:00)
[2024-08-20 05:48] LABS: *AMPHETAMINES SCREEN URINE NEGATIVE (NEGATIVE); *BARBITURATES SCREEN URINE NEGATIVE (NEGATIVE); *BENZODIAZEPINES SCREEN URINE NEGATIVE (NEGATIVE); *COCAINE SCREEN URINE PRESUMPTIVE POSITIVE (NEGATIVE); CANNABINOID URINE SCREEN NEGATIVE (NEGATIVE); ECSTASY MDMA SCREEN URINE NEGATIVE (NEGATIVE); METHADONE URINE SCREEN NEGATIVE (NEGATIVE); OPIATES URINE SCREEN PRESUMPTIVE POSITIVE (NEGATIVE); PHENCYCLIDINE URINE SCREEN PRESUMTIVE POSITIVE (NEGATIVE)
[2024-08-20] MEDS ORDERED: CEFAZOLIN SODIUM 500MG/VIAL IM SCH (06:00)
[2024-08-20] MEDS: CEFAZOLIN 1000MG PREMIX 50 ML IV SCH (06:06)
[2024-08-20] MEDS: FUROSEMIDE 40MG/4ML VIAL IV SCH (07:02)
[2024-08-20] MEDS: IPRATROPIUM/ALBUTEROL 0.5-3(2.5)MG/3ML NEB HHN SCH (08:10)
[2024-08-20] MEDS: ENOXAPARIN 40MG/0.4ML SYR SUBCUT SCH (08:29)
[2024-08-20] MEDS: ASPIRIN 81MG EC TABLET PO SCH (08:29)
[2024-08-20] MEDS: LOSARTAN 50 MG TABLET PO SCH ×2 (08:30→17:07)
[2024-08-20] MEDS: PANTOPRAZOLE SODIUM 40 MG/VIAL IV SCH (08:30)
[2024-08-20] MEDS: PREDNISONE 20MG TABLET PO SCH (08:30)
[2024-08-20] MEDS: ACETAMINOPHEN 325MG TABLET PO PRN (08:30)
[2024-08-20] MEDS: NICOTINE 21MG PATCH TD SCH (08:31)
[2024-08-20] MEDS ORDERED: METHYLPREDNISOLONE SOD SUCC 40MG/ML (ACT-O-VIAL) IV SCH (09:00)
[2024-08-20] MEDS: GUAIFENESIN 200MG/10ML SUGAR FREE UDC PO PRN (15:06)
[2024-08-20] MEDS: HYDRALAZINE 20MG/ML VIAL IV PRN (15:07)
[2024-08-20] MEDS ORDERED: CLONIDINE 0.2MG TABLET PO PRN (15:19)
[2024-08-20] MEDS: VANCOMYCIN 2GM PMX (XELLIA) 400 ML IV SCH (15:40)
[2024-08-20 16:19] LABS: PLATELET 220 x1000/uL (130-400); RED BLOOD CELL COUNT 4.54 mill/uL (4.2-5.4); RED CELL DISTRIBUTION WIDTH 18.6 % (11.6-14.6)
[2024-08-20 16:29] LABS: CREATININE 1.1 mg/dL (0.6-1.0)
[2024-08-20 16:30] LABS: UREA NITROGEN BLOOD 14 mg/dL (9-23)
[2024-08-20 16:32] LABS: TROPONIN I HIGH SENSITIVITY 30 ng/L (3.0-34)
[2024-08-20] MEDS: AMLODIPINE 5MG TABLET PO SCH (17:07)
[2024-08-20] MEDS: ATORVASTATIN CALCIUM 40MG TABLET PO SCH (21:58)
[2024-08-21] VITALS (8 sets, daily range): BP systolic 113–154; BP diastolic 55–91; PULSE 62–87; RESP 15–20; TEMP 35.5–36.6; O2SAT 95–99
[2024-08-21] MEDS: IPRATROPIUM/ALBUTEROL 0.5-3(2.5)MG/3ML NEB HHN SCH (00:40)
[2024-08-21 05:30] LABS: CREATININE 0.9 mg/dL (0.6-1.0)
[2024-08-21 05:31] LABS: UREA NITROGEN BLOOD 13 mg/dL (9-23)
[2024-08-21 05:53] LABS: PLATELET 213 x1000/uL (130-400); RED BLOOD CELL COUNT 4.32 mill/uL (4.2-5.4); RED CELL DISTRIBUTION WIDTH 18.2 % (11.6-14.6)
[2024-08-21] MEDS: MAGNESIUM 2 G PREMIX 50 ML IV ONE (11:36)
[2024-08-21] MEDS: VANCOMYCIN 1.25GM/250ML 250 ML IV SCH (15:25)
[2024-08-21] MEDS: SODIUM HYPOCHLORITE 0.125% 473ML SOLUTION TOP SCH (15:49)
[2024-08-22] VITALS (8 sets, daily range): BP systolic 91–147; BP diastolic 46–95; PULSE 75–89; RESP 16–20; TEMP 36.3–36.6; O2SAT 92–98
[2024-08-22] MEDS: EMPAGLIFLOZIN 10MG TABLET PO SCH (10:20)
[2024-08-22] MEDS: SPIRONOLACTONE 25MG TABLET PO SCH (11:10)
[2024-08-22] MEDS: CARVEDILOL 3.125 MG TABLET PO SCH (11:11)
[2024-08-23] VITALS: BP 155/71; PULSE 65; RESP 18; TEMP 36.5; O2SAT 100
[2024-08-23 04:00] VITALS: BP 126/71; PULSE 76; RESP 18; TEMP 36.4; O2SAT 98
[2024-08-23 06:58] LABS: CREATININE 0.8 mg/dL (0.6-1.0); UREA NITROGEN BLOOD 15 mg/dL (9-23)
[2024-08-23 07:02] LABS: BASOPHILS % 0.5 % (0.0-2.0); EOSINOPHILS % 0.1 % (0.0-5.0); HEMATOCRIT. 42.0 % (36.0-48.0); HEMOGLOBIN. 13.2 g/dL (12.0-16.0); LYMPHOCYTES % 15.7 % (20.0-50.0); MEAN PLATELET VOLUME 8.5 fl (7.4-10.4); MONOCYTES % 9.2 % (2.0-8.0); NEUTROPHILS % 74.5 % (40.0-76.0); PLATELET 197 x1000/uL (130-400); RED BLOOD CELL COUNT 4.17 mill/uL (4.2-5.4); RED CELL DISTRIBUTION WIDTH 18.4 % (11.6-14.6)
[2024-08-23 08:00] VITALS: BP 150/93; PULSE 75; RESP 18; TEMP 36.2; O2SAT 100
[2024-08-23] MEDS: FAMOTIDINE 20MG/2ML VIAL IV SCH (08:27)
[2024-08-23] MEDS: VANCOMYCIN 750MG PMX (XELLIA) 150 ML IV SCH (11:02)
[2024-08-23 12:00] VITALS: BP 102/64; PULSE 70; RESP 18; TEMP 36.3; O2SAT 100
[2024-08-23 16:00] VITALS: BP 127/74; PULSE 76; RESP 18; TEMP 36.3; O2SAT 92
== END 2024-08-23 16:30 | disposition left against medical advice (07) | DRG 194 ==
LOC: ER 17:39 → 5WST 20:50 → EDBEDREQ 20:58 → EDBEDREQTM 20:58 → ENRESERV 21:31
PROVIDERS: ADMIT Internal Medicine; ATTEND Internal Medicine
DX: I11.0 Hypertensive heart disease with heart failure (principal); I21.A1 Myocardial infarction type 2; I42.9 Cardiomyopathy, unspecified; I47.20 Ventricular tachycardia, unspecified; L03.115 Cellulitis of right lower limb; J44.1 Chronic obstructive pulmonary disease with (acute) exacerbation; I50.23 Acute on chronic systolic (congestive) heart failure; I16.1 Hypertensive emergency; F17.200 Nicotine dependence, unspecified, uncomplicated; L03.116 Cellulitis of left lower limb; E83.42 Hypomagnesemia; E78.00 Pure hypercholesterolemia, unspecified; I87.8 Other specified disorders of veins; L97.829 Non-pressure chronic ulcer of other part of left lower leg with unspecified severity; L97.819 Non-pressure chronic ulcer of other part of right lower leg with unspecified severity; I87.2 Venous insufficiency (chronic) (peripheral); I73.9 Peripheral vascular disease, unspecified; I34.0 Nonrheumatic mitral (valve) insufficiency; Z53.29 Procedure and treatment not carried out because of patient's decision for other reasons; F17.210 Nicotine dependence, cigarettes, uncomplicated; F14.10 Cocaine abuse, uncomplicated; F11.10 Opioid abuse, uncomplicated; F16.10 Hallucinogen abuse, uncomplicated; Z99.81 Dependence on supplemental oxygen; Z91.148 Patient's other noncompliance with medication regimen for other reason; Z79.899 Other long term (current) drug therapy; Z71.6 Tobacco abuse counseling; Z91.199 Patient's noncompliance with other medical treatment and regimen due to unspecified reason; Y92.89 Other specified places as the place of occurrence of the external cause; Z79.51 Long term (current) use of inhaled steroids
CPT/HCPCS: 36415; 71045; 80048; 80202; 80305; 83735; 83880; 84145; 84484; 85025; 85027; 93005; 93923; 93970; 94070; 94640; 94664; 94760; 97162; 97166; 98960; 99291; A4606; J0360; J0690; J1308; J1650; J1938; J2270; J2470; J3370; J3373; J3475; J7512

== ENCOUNTER 2024-10-17 17:41 | Inpatient (IN) | payer MEDICAID, OTHER ==
[~2024-10-17] VITALS: Ht 170.2 cm; Wt 85.1 kg
[2024-10-17 17:44] VITALS: O2SAT 97
[2024-10-17] MEDS ORDERED: LIDOCAINE 5% PATCH TOP STA (18:59)
[2024-10-17] MEDS ORDERED: ACETAMINOPHEN 325MG TABLET PO ONE (19:00)
[2024-10-17] MEDS ORDERED: KETOROLAC 30MG/ML VIAL IM ONE (19:00)
[2024-10-17] MEDS: LIDOCAINE 5% PATCH TOP SCH (20:33)
[2024-10-17] MEDS: ACETAMINOPHEN 325MG TABLET PO SCH (20:33)
[2024-10-17] MEDS: KETOROLAC 30MG/ML VIAL IM SCH (20:37)
[2024-10-17] MEDS: LOSARTAN 50 MG TABLET PO ONE (20:48)
[2024-10-17] MEDS: FUROSEMIDE 40MG TABLET PO ONE (20:48)
[2024-10-17] MEDS: CARVEDILOL 3.125 MG TABLET PO ONE (21:04)
[2024-10-17 21:28] LABS: BASOPHILS % 0.9 % (0.0-2.0); EOSINOPHILS % 0.9 % (0.0-5.0); HEMATOCRIT. 39.5 % (36.0-48.0); HEMOGLOBIN. 12.5 g/dL (12.0-16.0); LYMPHOCYTES % 25.1 % (20.0-50.0); MEAN PLATELET VOLUME 8.4 fl (7.4-10.4); MONOCYTES % 9.6 % (2.0-8.0); NEUTROPHILS % 63.5 % (40.0-76.0); PLATELET 181 x1000/uL (130-400); RED BLOOD CELL COUNT 3.97 mill/uL (4.2-5.4); RED CELL DISTRIBUTION WIDTH 17.9 % (11.6-14.6)
[2024-10-17 21:36] LABS: INR 1.1
[2024-10-17 21:40] LABS: CREATININE 1.1 mg/dL (0.6-1.0)
[2024-10-17 21:41] LABS: UREA NITROGEN BLOOD 16 mg/dL (9-23)
[2024-10-17 21:42] LABS: ASPARTATE AMINOTRANSFERASE 24 IU/L (<34)
[2024-10-17 21:43] LABS: BILIRUBIN DIRECT 0.6 mg/dL (<=3.0); BILIRUBIN TOTAL 1.0 mg/dL (0.1-1.0); PROTEIN TOTAL 7.4 g/dL (6.0-8.3)
[2024-10-17 21:54] LABS: TROPONIN I HIGH SENSITIVITY 44 ng/L (3.0-34)
[2024-10-17] MEDS: ASPIRIN 325MG TABLET PO ONE (23:27)
[2024-10-18 04:30] VITALS: BP 122/89; PULSE 82; RESP 22; TEMP 36.7516
[2024-10-18] MEDS ORDERED: ACETAMINOPHEN 325MG TABLET PO PRN (05:15)
[2024-10-18] MEDS ORDERED: NALOXONE HCL 0.4MG/ML VIAL IV PRN (05:15)
[2024-10-18] MEDS: HYDROCODONE/ACETAMINOPHEN 5/325MG TABLET PO PRN (05:18)
[2024-10-18] MEDS: FUROSEMIDE 40MG/4ML VIAL IVP SCH (06:39)
[2024-10-18 08:00] VITALS: BP 132/96; PULSE 79; RESP 17; TEMP 36.7; O2SAT 97
[2024-10-18] MEDS: ASPIRIN 81MG TABLET PO SCH (09:55)
[2024-10-18] MEDS: CARVEDILOL 3.125 MG TABLET PO SCH (09:56)
[2024-10-18] MEDS: ENOXAPARIN 40MG/0.4ML SYR SUBCUT SCH (09:57)
[2024-10-18] MEDS: LOSARTAN 50 MG TABLET PO SCH (09:58)
[2024-10-18 11:48] LABS: BASOPHILS % 1.1 % (0.0-2.0); EOSINOPHILS % 1.6 % (0.0-5.0); HEMATOCRIT. 38.3 % (36.0-48.0); HEMOGLOBIN. 12.4 g/dL (12.0-16.0); LYMPHOCYTES % 25.6 % (20.0-50.0); MEAN PLATELET VOLUME 8.9 fl (7.4-10.4); MONOCYTES % 8.9 % (2.0-8.0); NEUTROPHILS % 62.8 % (40.0-76.0); PLATELET 181 x1000/uL (130-400); RED BLOOD CELL COUNT 3.87 mill/uL (4.2-5.4); RED CELL DISTRIBUTION WIDTH 17.6 % (11.6-14.6)
[2024-10-18 12:00] VITALS: BP 131/92; PULSE 76; RESP 17; TEMP 36.4; O2SAT 99
[2024-10-18 12:11] LABS: CREATININE 1.2 mg/dL (0.6-1.0); UREA NITROGEN BLOOD 20.0 mg/dL (9-23)
[2024-10-18 13:05] LABS: TROPONIN I HIGH SENSITIVITY 45.0 ng/L (3.0-34)
[2024-10-18] MEDS ORDERED: IPRATROPIUM/ALBUTEROL 0.5-3(2.5)MG/3ML NEB HHN PRN (15:15)
[2024-10-18 16:00] VITALS: BP 142/98; PULSE 85; RESP 18; TEMP 36.6; O2SAT 98
[2024-10-18 20:00] VITALS: BP 117/52; PULSE 69; RESP 16; TEMP 36.3; O2SAT 92
[2024-10-19] VITALS: BP 140/94; PULSE 97; RESP 20; TEMP 36.3; O2SAT 96
[2024-10-19 04:00] VITALS: BP 133/88; PULSE 88; RESP 18; TEMP 36.4; O2SAT 98
[2024-10-19 08:00] VITALS: BP 119/70; PULSE 74; RESP 16; TEMP 36.2; O2SAT 98
[2024-10-19 12:00] VITALS: BP 119/82; PULSE 75; RESP 18; TEMP 36.2; O2SAT 98
[2024-10-19] MEDS: ACETAMINOPHEN 325MG TABLET PO PRN (22:32)
[2024-10-20] VITALS: BP 110/83; PULSE 69; RESP 20; TEMP 36.7; O2SAT 99
[2024-10-20 04:00] VITALS: BP 121/86; PULSE 76; RESP 20; TEMP 36.1; O2SAT 98
[2024-10-20 09:00] VITALS: BP 141/93; PULSE 71; RESP 16; TEMP 36.2; O2SAT 95
[2024-10-20] MEDS ORDERED: SPIR25TA6 MT (12:20)
[2024-10-20] MEDS ORDERED: CARV12.545 MT (12:20)
[2024-10-20] MEDS ORDERED: LOSA50TA41 MT (12:20)
[2024-10-20] MEDS ORDERED: FURO-151 MT (12:20)
[2024-10-20 12:44] VITALS: BP 112/84; PULSE 75; RESP 20; TEMP 37.2; O2SAT 98
[2024-10-20 15:30] VITALS: BP 112/84; PULSE 75; RESP 20; TEMP 98.9
== END 2024-10-20 16:20 | disposition home or self-care (01) | DRG 351 ==
LOC: ER 17:41 → 6WST 10-18 01:18 → EDBEDREQDT 10-18 01:49 → EDBEDREQTM 10-18 01:49 → EDBEDREQ 10-18 01:49 → ENRESERV 10-18 02:41
PROVIDERS: ADMIT Internal Medicine; ATTEND Internal Medicine
DX: M25.512 Pain in left shoulder (principal); I50.23 Acute on chronic systolic (congestive) heart failure; J18.9 Pneumonia, unspecified organism; I11.0 Hypertensive heart disease with heart failure; L97.818 Non-pressure chronic ulcer of other part of right lower leg with other specified severity; M19.019 Primary osteoarthritis, unspecified shoulder; M85.812 Other specified disorders of bone density and structure, left shoulder; M54.2 Cervicalgia; J45.909 Unspecified asthma, uncomplicated; L97.828 Non-pressure chronic ulcer of other part of left lower leg with other specified severity; L85.3 Xerosis cutis; F17.210 Nicotine dependence, cigarettes, uncomplicated; Z79.82 Long term (current) use of aspirin; I25.2 Old myocardial infarction; Z79.899 Other long term (current) drug therapy
CPT/HCPCS: 36415; 71045; 73000; 73030; 73200; 80048; 80076; 83880; 84484; 85025; 93005; 99285; A4565; A4606; J1650; J1885; J1938

== ENCOUNTER 2024-10-26 18:17 | Inpatient (IN) | payer OTHER ==
[~2024-10-26] VITALS: Ht 162.6 cm; Wt 95.7 kg
[~2024-10-26 18:17] MED LIST changes: +CARV12.545 MT; +FURO-151 MT; -FURO40TA5 MT; +SPIR25TA6 MT
[2024-10-26 18:22] VITALS: O2SAT 98
[2024-10-26] MEDS ORDERED: VANCOMYCIN 1G PREMIX 200 ML IV ONE (19:30)
[2024-10-26] MEDS: HYDROCODONE/ACETAMINOPHEN 5/325MG TABLET PO ONE (20:22)
[2024-10-26 20:35] LABS: BASOPHILS % 0.6 % (0.0-2.0); EOSINOPHILS % 1.1 % (0.0-5.0); HEMATOCRIT. 40.6 % (36.0-48.0); HEMOGLOBIN. 12.5 g/dL (12.0-16.0); LYMPHOCYTES % 23.8 % (20.0-50.0); MEAN PLATELET VOLUME 8.4 fl (7.4-10.4); MONOCYTES % 10.2 % (2.0-8.0); NEUTROPHILS % 64.3 % (40.0-76.0); PLATELET 156 x1000/uL (130-400); RED BLOOD CELL COUNT 4.01 mill/uL (4.2-5.4); RED CELL DISTRIBUTION WIDTH 18.4 % (11.6-14.6)
[2024-10-26 20:45] LABS: INR 1.1
[2024-10-26 20:49] LABS: CREATININE 1.1 mg/dL (0.6-1.0); UREA NITROGEN BLOOD 9 mg/dL (9-23)
[2024-10-26 20:51] LABS: ASPARTATE AMINOTRANSFERASE 30 IU/L (<34); BILIRUBIN DIRECT 0.5 mg/dL (<=3.0); BILIRUBIN TOTAL 1.0 mg/dL (0.1-1.0); PROTEIN TOTAL 7.4 g/dL (6.0-8.3)
[2024-10-26 21:23] LABS: CLARITY URINE CLEAR (CLEAR); COLOR URINE DARK YELLOW (YELLOW); GLUCOSE URINE NEGATIVE (NEGATIVE); KETONES URINE TRACE (NEGATIVE); LEUKOCYTE ESTERASE URINE 1+ (NEGATIVE); NITRITE URINE NEGATIVE (NEGATIVE); OCCULT BLOOD URINE NEGATIVE (NEGATIVE); PH URINE 5.5 (4.5-8.0); PROTEIN URINE 3+ (NEGATIVE); SPECIFIC GRAVITY URINE 1.024 (1.005-1.030); UROBILINOGEN URINE 1.0 E.U./dL (0.2-1.0)
[2024-10-26] MEDS: PIPERACILLIN/TAZO 3.375G/50ML 50 ML IV ONE (21:23)
[2024-10-26 21:26] LABS: BACTERIA URINE 1+; RBC URINE 0-2 /hpf (0-2); SQUAMOUS EPITHELIAL CELL URINE FEW /lpf (RARE/1+)
[2024-10-26] MEDS: MORPHINE SULFATE 4 MG/ML INJ (FOR IV/IM USE) IV ONE (23:38)
[2024-10-26] MEDS: ONDANSETRON HCL 4MG/2ML INJ IV ONE (23:38)
[2024-10-27 02:11] VITALS: BP 169/104; PULSE 96; RESP 18; TEMP 36.418
[2024-10-27] MEDS: HYDROCODONE/ACETAMINOPHEN 10/325MG TABLET PO PRN (07:14)
[2024-10-27 08:00] VITALS: BP 145/105; PULSE 68; RESP 18; TEMP 36.7; O2SAT 100
[2024-10-27] MEDS: ASPIRIN 81MG TABLET PO SCH (09:37)
[2024-10-27] MEDS: SPIRONOLACTONE 25MG TABLET PO SCH (09:38)
[2024-10-27] MEDS: LOSARTAN 50 MG TABLET PO SCH (09:38)
[2024-10-27] MEDS: FUROSEMIDE 40MG TABLET PO SCH ×2 (09:39→17:15)
[2024-10-27] MEDS: CARVEDILOL 12.5MG TABLET PO SCH (09:39)
[2024-10-27] MEDS: METOLAZONE 2.5MG TABLET PO SCH (10:45)
[2024-10-27 12:00] VITALS: BP 90/54; PULSE 59; RESP 15; O2SAT 83
[2024-10-27 13:02] LABS: BASOPHILS % 0.7 % (0.0-2.0); EOSINOPHILS % 0.8 % (0.0-5.0); HEMATOCRIT. 38.0 % (36.0-48.0); HEMOGLOBIN. 12.0 g/dL (12.0-16.0); LYMPHOCYTES % 31.0 % (20.0-50.0); MEAN PLATELET VOLUME 8.3 fl (7.4-10.4); MONOCYTES % 11.1 % (2.0-8.0); NEUTROPHILS % 56.4 % (40.0-76.0); PLATELET 164 x1000/uL (130-400); RED BLOOD CELL COUNT 3.79 mill/uL (4.2-5.4); RED CELL DISTRIBUTION WIDTH 18.2 % (11.6-14.6)
[2024-10-27 13:16] LABS: CREATININE 1.2 mg/dL (0.6-1.0); UREA NITROGEN BLOOD 16.0 mg/dL (9-23)
[2024-10-27] MEDS: NALOXONE HCL 0.4MG/ML 1ML VIAL IM NR (15:15)
[2024-10-27] MEDS: NALOXONE HCL 0.4MG/ML VIAL IV PRN (15:22)
[2024-10-27 16:00] VITALS: BP 130/89; PULSE 80; RESP 15; TEMP 36.9; O2SAT 95
[2024-10-27 20:00] VITALS: BP 139/100; PULSE 78; RESP 18; TEMP 35.8; O2SAT 95
[2024-10-27] MEDS: ATORVASTATIN CALCIUM 20MG TABLET PO SCH (21:00)
[2024-10-28 04:00] VITALS: BP 96/66; PULSE 72; RESP 18; TEMP 36.8; O2SAT 94
[2024-10-28 07:03] VITALS: BP 112/71; PULSE 64; RESP 16; O2SAT 98
[2024-10-28] MEDS: ACETAMINOPHEN 325MG TABLET PO PRN (07:03)
[2024-10-28 07:43] LABS: CREATININE 1.2 mg/dL (0.6-1.0); UREA NITROGEN BLOOD 11.0 mg/dL (9-23)
[2024-10-28] MEDS: POTASSIUM CHLORIDE 20MEQ TABLET SR PO SCH (08:44)
[2024-10-28 10:55] LABS: *AMPHETAMINES SCREEN URINE NEGATIVE (NEGATIVE); *BARBITURATES SCREEN URINE NEGATIVE (NEGATIVE); *BENZODIAZEPINES SCREEN URINE NEGATIVE (NEGATIVE); *COCAINE SCREEN URINE NEGATIVE (NEGATIVE); METHADONE URINE SCREEN NEGATIVE (NEGATIVE); OPIATES URINE SCREEN PRESUMPTIVE POSITIVE (NEGATIVE)
[2024-10-28 10:56] LABS: CANNABINOID URINE SCREEN NEGATIVE (NEGATIVE); ECSTASY MDMA SCREEN URINE NEGATIVE (NEGATIVE); PHENCYCLIDINE URINE SCREEN PRESUMTIVE POSITIVE (NEGATIVE)
[2024-10-28] MEDS: CEFTRIAXONE 1GM/50ML 50 ML IV SCH (13:00)
[2024-10-28] MEDS: SODIUM ZIRCONIUM CYCLOSILICATE 10GM/PACKET PO SCH (13:19)
[2024-10-28 16:00] VITALS: BP 126/87; PULSE 77; RESP 17; TEMP 36.6; O2SAT 100
[2024-10-28 20:00] VITALS: BP 119/79; PULSE 78; RESP 18; TEMP 36.5; O2SAT 96
[2024-10-29] VITALS (7 sets, daily range): BP systolic 90–128; BP diastolic 57–71; PULSE 61–76; RESP 17–19; TEMP 35.9–36.7; O2SAT 92–99
[2024-10-29 21:35] LABS: HEMATOCRIT. 38.3 % (36.0-48.0); HEMOGLOBIN. 11.9 g/dL (12.0-16.0); MEAN PLATELET VOLUME 8.3 fl (7.4-10.4); PLATELET 149 x1000/uL (130-400); RED BLOOD CELL COUNT 3.81 mill/uL (4.2-5.4); RED CELL DISTRIBUTION WIDTH 17.7 % (11.6-14.6)
[2024-10-29 21:57] LABS: CREATININE 1.2 mg/dL (0.6-1.0)
[2024-10-29 21:59] LABS: UREA NITROGEN BLOOD 21.0 mg/dL (9-23)
[2024-10-29 22:18] LABS: EOSINOPHILS % MANUAL 1.0 % (0.0-5.0); LYMPHOCYTES % MANUAL 16.0 % (20.0-60.0); MONOCYTES % MANUAL 16.0 % (2.0-8.0); NEUTROPHILS % MANUAL 67.0 % (45.0-75.0); PLATELET ESTIMATE NORMAL
[2024-10-30] VITALS: BP 110/58; PULSE 70; RESP 16; TEMP 36.5; O2SAT 100
[2024-10-30 04:00] VITALS: BP_SYST 130; PULSE 78; RESP 17; TEMP 36.4; O2SAT 100
[2024-10-30 08:00] VITALS: BP_SYST 132; BP_SYST 133; BP_DIAS 84; PULSE 61; RESP 17; RESP 18; TEMP 36.4; O2SAT 100
[2024-10-30 12:00] VITALS: BP 107/60; PULSE 60; RESP 20; TEMP 36.8; O2SAT 100
[2024-10-30 16:00] VITALS: BP_SYST 104; BP_SYST 121; BP_DIAS 52; BP_DIAS 69; PULSE 66; RESP 68; TEMP 36.7; O2SAT 100
[2024-10-30 18:31] LABS: BASOPHILS % 0.5 % (0.0-2.0); EOSINOPHILS % 0.5 % (0.0-5.0); HEMATOCRIT. 35.8 % (36.0-48.0); HEMOGLOBIN. 11.4 g/dL (12.0-16.0); LYMPHOCYTES % 17.4 % (20.0-50.0); MEAN PLATELET VOLUME 8.2 fl (7.4-10.4); MONOCYTES % 11.3 % (2.0-8.0); NEUTROPHILS % 70.3 % (40.0-76.0); PLATELET 168 x1000/uL (130-400); RED BLOOD CELL COUNT 3.60 mill/uL (4.2-5.4); RED CELL DISTRIBUTION WIDTH 17.0 % (11.6-14.6)
[2024-10-30 18:44] LABS: CREATININE 1.0 mg/dL (0.6-1.0); UREA NITROGEN BLOOD 18 mg/dL (9-23)
[2024-10-30 20:00] VITALS: BP 120/86; PULSE 70; RESP 18; TEMP 36.4; O2SAT 96
[2024-10-31] VITALS: BP 131/87; PULSE 76; RESP 18; TEMP 36.6; O2SAT 96
[2024-10-31 04:00] VITALS: BP 145/72; PULSE 72; RESP 18; TEMP 35.6; O2SAT 96
[2024-10-31 08:00] VITALS: BP 127/79; PULSE 62; RESP 18; TEMP 36.5; O2SAT 96
[2024-10-31 12:00] VITALS: BP 111/74; PULSE 60; RESP 18; TEMP 36.4; O2SAT 96
[2024-10-31] MEDS ORDERED: LORAZEPAM 2MG/ML UD SYRINGE IV NR (13:15)
[2024-10-31] MEDS ORDERED: CEFTRIAXONE 1GM/50ML 50 ML IV SCH (14:00)
[2024-10-31 16:00] VITALS: BP 123/81; PULSE 74; RESP 18; TEMP 36.5; O2SAT 98
[2024-10-31 18:03] VITALS: BP 123/81; PULSE 74; RESP 15; TEMP 97.8
== END 2024-10-31 18:58 | disposition home or self-care (01) | DRG 551 ==
LOC: ER 18:29 → 5WST 22:07 → EDBEDREQ 22:43 → EDBEDREQTM 22:43 → ENRESERV 23:11 → 7EST 10-29 03:30
PROVIDERS: ADMIT Internal Medicine; ATTEND Internal Medicine
DX: M54.50 Low back pain, unspecified (principal); I50.23 Acute on chronic systolic (congestive) heart failure; J96.01 Acute respiratory failure with hypoxia; N17.9 Acute kidney failure, unspecified; N39.0 Urinary tract infection, site not specified; Z59.00 Homelessness unspecified; E87.5 Hyperkalemia; I11.0 Hypertensive heart disease with heart failure; I87.2 Venous insufficiency (chronic) (peripheral); D72.819 Decreased white blood cell count, unspecified; F17.210 Nicotine dependence, cigarettes, uncomplicated; J45.909 Unspecified asthma, uncomplicated; Z51.5 Encounter for palliative care; Z79.899 Other long term (current) drug therapy
CPT/HCPCS: 36415; 71045; 72100; 80048; 80076; 80305; 81003; 82962; 83605; 83880; 84145; 85025; 93005; 97162; 99285; A4606; J0696; J2270; J2312; J2405; J2543; J3373

== ENCOUNTER 2024-12-24 11:52 | Inpatient (IN) | payer OTHER ==
[~2024-12-24] VITALS: Ht 162.6 cm; Wt 83.1 kg
[~2024-12-24 11:52] MED LIST changes: -ACET-2708 MT
[2024-12-24 13:06] LABS: BASOPHILS % 0.8 % (0.0-2.0); EOSINOPHILS % 0.8 % (0.0-5.0); HEMATOCRIT. 37.5 % (36.0-48.0); HEMOGLOBIN. 11.8 g/dL (12.0-16.0); LYMPHOCYTES % 24.7 % (20.0-50.0); MEAN PLATELET VOLUME 8.5 fl (7.4-10.4); MONOCYTES % 7.9 % (2.0-8.0); NEUTROPHILS % 65.8 % (40.0-76.0); PLATELET 169 x1000/uL (130-400); RED BLOOD CELL COUNT 3.73 mill/uL (4.2-5.4); RED CELL DISTRIBUTION WIDTH 17.9 % (11.6-14.6)
[2024-12-24 13:20] LABS: CREATININE 0.9 mg/dL (0.6-1.0); UREA NITROGEN BLOOD 12 mg/dL (9-23)
[2024-12-24 13:24] LABS: TROPONIN I HIGH SENSITIVITY 39 ng/L (3.0-34)
[2024-12-24] MEDS ORDERED: ACETAMINOPHEN 325MG TABLET PO PRN ×2 (15:00)
[2024-12-24] MEDS ORDERED: ONDANSETRON HCL 4MG/2ML INJ IV PRN (15:00)
[2024-12-24] MEDS ORDERED: DEXTROSE 50% WATER 50ML SYRINGE IV PRN (15:00)
[2024-12-24] MEDS: ENOXAPARIN 40MG/0.4ML SYR SUBCUT SCH (16:00)
[2024-12-24 16:33] LABS: TRIGLYCERIDE 76.0 mg/dL (0-150)
[2024-12-24 16:34] LABS: LDL CHOLESTEROL 105.0 mg/dL (5-100)
[2024-12-24 16:38] LABS: T4 FREE 1.14 ng/dL (0.89-1.76)
[2024-12-24] MEDS: BLOOD SUGAR DIAGNOSTIC STRIP TEST SCH (16:50)
[2024-12-24] MEDS: INSULIN LISPRO 100 UNITS/ML SUBCUT SCH (17:20)
[2024-12-24 17:41] VITALS: BP 92/79; PULSE 89; RESP 21; TEMP 36.4736
[2024-12-24 20:00] VITALS: BP 123/96; PULSE 83; RESP 24; TEMP 36.9; O2SAT 99
[2024-12-24 20:02] LABS: TROPONIN I HIGH SENSITIVITY 38 ng/L (3.0-34)
[2024-12-24] MEDS: ATORVASTATIN CALCIUM 20MG TABLET PO SCH (21:25)
[2024-12-24] MEDS: CARVEDILOL 3.125 MG TABLET PO SCH (21:25)
[2024-12-24] MEDS: QUETIAPINE FUMARATE 25MG TABLET PO SCH (21:25)
[2024-12-24] MEDS: IPRATROPIUM/ALBUTEROL 0.5-3(2.5)MG/3ML NEB HHN SCH (22:52)
[2024-12-24 22:55] VITALS: PULSE 81; RESP 17; O2SAT 97
[2024-12-25] VITALS (10 sets, daily range): BP systolic 118–137; BP diastolic 87–99; PULSE 72–96; RESP 12–25; TEMP 36.2–36.9; O2SAT 90–98
[2024-12-25 07:15] LABS: BASOPHILS % 0.7 % (0.0-2.0); EOSINOPHILS % 0.9 % (0.0-5.0); HEMATOCRIT. 40.5 % (36.0-48.0); HEMOGLOBIN. 12.4 g/dL (12.0-16.0); LYMPHOCYTES % 22.7 % (20.0-50.0); MEAN PLATELET VOLUME 8.4 fl (7.4-10.4); MONOCYTES % 11.7 % (2.0-8.0); NEUTROPHILS % 64.0 % (40.0-76.0); PLATELET 139 x1000/uL (130-400); RED BLOOD CELL COUNT 3.92 mill/uL (4.2-5.4); RED CELL DISTRIBUTION WIDTH 18.0 % (11.6-14.6)
[2024-12-25 07:43] LABS: CREATININE 1.0 mg/dL (0.6-1.0); UREA NITROGEN BLOOD 10 mg/dL (9-23)
[2024-12-25] MEDS: NICOTINE 7MG PATCH TD SCH (09:05)
[2024-12-25] MEDS: FUROSEMIDE 40MG/4ML VIAL IVP SCH ×2 (09:05→17:57)
[2024-12-25] MEDS: PANTOPRAZOLE SODIUM 40 MG/VIAL IV SCH (09:05)
[2024-12-25] MEDS: ASPIRIN 81MG EC TABLET PO SCH (09:06)
[2024-12-25] MEDS: LOSARTAN 50 MG TABLET PO SCH (09:08)
[2024-12-25 13:50] LABS: TROPONIN I HIGH SENSITIVITY 24 ng/L (3.0-34)
[2024-12-25] MEDS: SPIRONOLACTONE 25MG TABLET PO SCH (14:42)
[2024-12-25 15:32] LABS: CLARITY URINE CLEAR (CLEAR); COLOR URINE YELLOW (YELLOW); GLUCOSE URINE NEGATIVE (NEGATIVE); KETONES URINE NEGATIVE (NEGATIVE); LEUKOCYTE ESTERASE URINE 2+ (NEGATIVE); NITRITE URINE NEGATIVE (NEGATIVE); OCCULT BLOOD URINE NEGATIVE (NEGATIVE); PH URINE 5.0 (4.5-8.0); PROTEIN URINE 1+ (NEGATIVE); SPECIFIC GRAVITY URINE 1.010 (1.005-1.030); UROBILINOGEN URINE 1.0 E.U./dL (0.2-1.0)
[2024-12-25 15:47] LABS: BACTERIA URINE 1+; RBC URINE 0-2 /hpf (0-2); SQUAMOUS EPITHELIAL CELL URINE FEW /lpf (RARE/1+)
[2024-12-25 15:51] LABS: *AMPHETAMINES SCREEN URINE NEGATIVE (NEGATIVE); *BARBITURATES SCREEN URINE NEGATIVE (NEGATIVE); *BENZODIAZEPINES SCREEN URINE NEGATIVE (NEGATIVE); *COCAINE SCREEN URINE NEGATIVE (NEGATIVE); CANNABINOID URINE SCREEN NEGATIVE (NEGATIVE); ECSTASY MDMA SCREEN URINE NEGATIVE (NEGATIVE); METHADONE URINE SCREEN NEGATIVE (NEGATIVE); OPIATES URINE SCREEN NEGATIVE (NEGATIVE); PHENCYCLIDINE URINE SCREEN PRESUMTIVE POSITIVE (NEGATIVE)
[2024-12-25] MEDS: ATORVASTATIN CALCIUM 40MG TABLET PO SCH (21:21)
[2024-12-25] MEDS: CEFTRIAXONE 1GM/50ML 50 ML IV SCH (21:21)
[2024-12-26] VITALS (10 sets, daily range): BP systolic 96–118; BP diastolic 67–82; PULSE 68–77; RESP 14–30; TEMP 36.3–36.7; O2SAT 90–97
[2024-12-26 08:37] LABS: BASOPHILS % 0.9 % (0.0-2.0); EOSINOPHILS % 1.5 % (0.0-5.0); HEMATOCRIT. 37.6 % (36.0-48.0); HEMOGLOBIN. 11.6 g/dL (12.0-16.0); LYMPHOCYTES % 22.6 % (20.0-50.0); MEAN PLATELET VOLUME 8.7 fl (7.4-10.4); MONOCYTES % 8.5 % (2.0-8.0); NEUTROPHILS % 66.5 % (40.0-76.0); PLATELET 137 x1000/uL (130-400); RED BLOOD CELL COUNT 3.64 mill/uL (4.2-5.4); RED CELL DISTRIBUTION WIDTH 17.3 % (11.6-14.6)
[2024-12-26 09:00] LABS: CREATININE 1.1 mg/dL (0.6-1.0); TROPONIN I HIGH SENSITIVITY 31 ng/L (3.0-34); UREA NITROGEN BLOOD 13 mg/dL (9-23)
[2024-12-26] MEDS: METOLAZONE 2.5MG TABLET PO NR (10:14)
[2024-12-27] VITALS (8 sets, daily range): BP systolic 94–125; BP diastolic 66–82; PULSE 65–75; RESP 12–24; TEMP 36.6–36.7; O2SAT 93–99
[2024-12-27] MEDS ORDERED: LEVO-65 MT (08:42)
== END 2024-12-27 13:30 | disposition home or self-care (01) | DRG 190 ==
LOC: ER 11:52 → 3WST 13:28 → EDBEDREQTM 13:38 → EDBEDREQ 13:38 → ENRESERV 15:08
PROVIDERS: ADMIT Internal Medicine; ATTEND Internal Medicine
DX: I21.4 Non-ST elevation (NSTEMI) myocardial infarction (principal); J96.01 Acute respiratory failure with hypoxia; I50.23 Acute on chronic systolic (congestive) heart failure; I11.0 Hypertensive heart disease with heart failure; L97.919 Non-pressure chronic ulcer of unspecified part of right lower leg with unspecified severity; I34.0 Nonrheumatic mitral (valve) insufficiency; J44.89 Other specified chronic obstructive pulmonary disease; I73.9 Peripheral vascular disease, unspecified; E78.00 Pure hypercholesterolemia, unspecified; F17.210 Nicotine dependence, cigarettes, uncomplicated; L97.929 Non-pressure chronic ulcer of unspecified part of left lower leg with unspecified severity; I42.9 Cardiomyopathy, unspecified; Z99.81 Dependence on supplemental oxygen; Z91.148 Patient's other noncompliance with medication regimen for other reason; Z79.82 Long term (current) use of aspirin; Z79.899 Other long term (current) drug therapy; Z71.6 Tobacco abuse counseling
CPT/HCPCS: 36415; 71045; 80048; 80061; 80305; 81003; 82962; 83036; 83735; 83880; 84439; 84443; 84484; 85025; 87077; 87186; 93005; 93306; 94070; 94640; 94664; 94760; 97162; 97166; 98960; 99285; A4606; J0696; J1650; J1938; J2470